=== PATIENT | male | born 1965 | race African-American/Black ===

== ENCOUNTER 2016-11-21 14:43 | Emergency (ER) | payer MEDICARE, OTHER ==
[2016-11-21 14:49] VITALS: BP 157/93
--- NOTE | 2016-11-21 15:02 | ER Document Report ---
ED Hand/Wrist Injury - General Chief Complaint: Hand Swelling Stated Complaint: LEFT HAND SWELLING Time seen by provider: 15:02 Mode of Arrival: Ambulatory Information source: Patient Notes: 51-year-old man presents to ED for left thumb swelling and painful since yesterday. He states he does not remember any injury. TRAVEL OUTSIDE OF THE [place] IN LAST 30 DAYS: No - HPI Injury to: Thumb Onset: Yesterday Where: Home Timing: Still present Quality of pain: Pressure, Stabbing Severity: Moderate Pain Level: 4 - Related Data Allergies/Adverse Reactions: No Known Allergies Allergy (Verified 11/21/16 14:47) Past Medical History - General Information source: Patient - Social History Smoking Status: Never Smoker Cigarette use (# per day): No Chew tobacco use (# tins/day): No Smoking Education Provided: No Frequency of alcohol use: Occasional Drug Abuse: None Occupation: disabled Lives with: Family Family History: CAD, DM, Hyperlipidemia, Hypertension Patient has suicidal ideation: No Patient has homicidal ideation: No - Past Medical History Cardiac Medical History: Reports: Hx Congestive Heart Failure, Hx Coronary Artery Disease, Hx Hypercholesterolemia, Hx Hypertension Pulmonary Medical History: Reports: Hx Bronchitis, Hx Pneumonia EENT Medical History: Reports: None Neurological Medical History: Reports: None Endocrine Medical History: Reports: Hx Diabetes Mellitus Type 2 Renal/ Medical History: Reports: Hx End Stage Renal Disease, Other - Hemodialysis Malignancy Medical History: Reports None GI Medical History: Reports: None Musculoskeltal Medical History: Reports None Skin Medical History: Reports None Psychiatric Medical History: Reports: None Traumatic Medical History: Reports: None Infectious Medical History: Reports: None Past Surgical History: Reports: Other - Left radiocephalic fistula insertion. Angioplasty in left radiocephalic - Immunizations Immunizations up to date: Yes Hx Diphtheria, Pertussis, Tetanus Vaccination: Yes Review of Systems - Review of Systems Constitutional: No symptoms reported EENT: No symptoms reported Cardiovascular: No symptoms reported Respiratory: No symptoms reported Gastrointestinal: No symptoms reported Genitourinary: No symptoms reported Male Genitourinary: No symptoms reported Musculoskeletal: Other - Swollen painful left thumb Skin: Other - Swollen painful left thumb Hematologic/Lymphatic: No symptoms reported Neurological/Psychological: No symptoms reported Physical Exam - Vital signs Vitals: Temp Pulse Resp BP Pulse Ox 98.8 F 99 20 157/93 H 96 11/21/16 14:46 11/21/16 14:46 11/21/16 14:46 11/21/16 14:46 11/21/16 14:46 Interpretation: Normal - General General appearance: Appears well, Alert - HEENT Head: Normocephalic, Atraumatic Eyes: Normal Pupils: PERRL - Respiratory Respiratory status: No respiratory distress Chest status: Nontender Breath sounds: Normal Chest palpation: Normal - Cardiovascular Rhythm: Regular Heart sounds: Normal auscultation Murmur: No - Abdominal Inspection: Normal Distension: No distension Bowel sounds: Normal Tenderness: Nontender Organomegaly: No organomegaly - Back Back: Normal, Nontender - Extremities General lower extremity: Normal inspection, Nontender, Normal color, Normal ROM , Normal temperature, Normal weight bearing. No: Richelle's sign Hand: Other - Left thumb swollen red tender - Neurological Neuro grossly intact: Yes Cognition: Normal Orientation: AAOx4 [place] Coma Scale Eye Opening: Spontaneous [place] Coma Scale Verbal: Oriented [place] Coma Scale Motor: Obeys Commands [place] Coma Scale Total: 15 Speech: Normal Motor strength normal: LUE, RUE, LLE, RLE Sensory: Normal - Psychological Associated symptoms: Normal affect, Normal mood - Skin Skin Temperature: Warm Skin Moisture: Dry Skin Color: Normal Course - Vital Signs Vital signs: Temp Pulse Resp BP Pulse Ox 98.8 F 99 20 157/93 H 96 11/21/16 14:50 11/21/16 14:50 11/21/16 14:50 11/21/16 14:50 11/21/16 14:50 Discharge - Discharge Clinical Impression: gout left thumb Gout Qualifiers: Gout site: hand Gout etiology: due to renal impairment Laterality: left Chronicity: acute Qualified Code(s): M10.342 - Gout due to renal impairment, left hand Condition: Stable Disposition: HOME, SELF-CARE Additional Instructions: Gout You have been diagnosed as having gout. Gout is a problem caused by an excess of uric acid, a natural chemical found in the body. The cause of this disease is unknown. Gout arthritis occurs when crystals of uric acid form in the joints. The big toe is the most common joint involved, but any joint can become affected. Persons with gout may also form uric acid kidney stones, resulting in flank pain and blood in the urine. Nodules of uric acid may form under the skin. The first step of treatment is to decrease the inflammation in the joint with antiinflammatory medication. Medication to lower the uric acid level in the blood may then be prescribed. This medication should be taken regularly, as any sudden change in dosage may provoke an attack of gout. Some foods, such as red meat, can provoke an attack in some gout sufferers. Call the doctor if new symptoms arise, or if you do not improve. Gout Diet Changing your diet can decrease the uric acid in your blood. High levels of uric acid cause gouty arthritis and uric acid kidney stones. If you have gout , you should avoid meats that are high in purine. Meat products to avoid include liver, kidneys, and brains. In general, poultry is better than red meats. Seafoods to avoid include anchovies, sardines, osman, mackerel, and scallops. In addition to limiting purine-rich foods, people with gout should limit protein intake to 10-15% of total calories. Carbohydrate intake should be around 50% of total daily calories. Limit fat intake to 30% of total daily calories. Cholesterol intake should be less than 300 mg/day. Maintain or achieve a healthy body weight. Weight loss should be gradual. Rapid weight loss can actually increase uric acid levels temporarily. Alcohol, especially beer, should be avoided. Get plenty of fluids. This dilutes urinary uric acid, and helps prevent uric acid kidney stones. Drink eight to twelve cups of water daily. Oral Narcotic Medication You have been given a prescription for pain control. This medication is a narcotic. It's best taken with food, as nausea can result if taken on an empty stomach. Don't operate machinery or drive within six hours of taking this medication. Do not combine this medicine with alcohol, or with any medication which can cause sedation (such as cold tablets or sleeping pills) unless you get permission from the physician. Narcotics tend to cause constipation. If possible, drink plenty of fluids and eat a diet high in fiber and fruits. FOLLOW-UP CARE: Please call your doctor on Wednesday and schedule a follow-up visit within the next 2-3 days. If you have been referred to a physician for follow-up care, call the physician s office for an appointment as you were instructed or within the next two days. If you experience worsening or a significant change in your symptoms, notify the physician immediately or return to the Emergency Department at any time for re-evaluation. Prescriptions: Oxycodone HCl/Acetaminophen [Percocet 5-325 mg Tablet] 1 tab PO Q6HP PRN #20 tablet PRN Reason: Forms: Elevated Blood Pressure Referrals: DAWN JOHNSON MD [Primary Care Provider] - 11/23/16
== END 2016-11-21 16:53 | disposition home or self-care (01) ==
LOC: ER 14:43
DX: I12.0 Hypertensive chronic kidney disease with stage 5 chronic kidney disease or end stage renal disease (principal); E11.22 Type 2 diabetes mellitus with diabetic chronic kidney disease; M10.342 Gout due to renal impairment, left hand; N18.6 End stage renal disease; Z99.2 Dependence on renal dialysis; I25.10 Atherosclerotic heart disease of native coronary artery without angina pectoris
CPT/HCPCS: 99283

== ENCOUNTER → 2017-03-09 | Outpatient (CLI) | payer MEDICARE, OTHER ==
[~2017-03-09] MED LIST: REGADENOSON INJ 0.4 MG/5 ML DISP.SYRIN IV ONE
--- NOTE | 2017-03-10 16:12 | RADIOLOGY REPORT ---
STRESS TEST REPORT PATIENT NAME: ALBERT SHAFFER ROOM#: DATE OF SERVICE: 03/09/2017 AGE: 51Y ORDER#: [id number] REFERRING MD: Nael NORIEGA M.D. INDICATION: Preop transplant workup for kidney transplant. PROCEDURE PERFORMED REST/STRESS SINGLE ISOTOPE CARDIOLITE SPECT IMAGING WITH IV LEXISCAN STRESS AND GATED SPECT IMAGING CLINICAL HISTORY This is a 51-year-old male with no known coronary artery disease but has cardiac risk factors of hypertension, CKD, ESRD on dialysis, and family history of [place]. Current symptomatology includes no chest pains. PROCEDURE The patient received IV Lexiscan 0.4 mg infused over ten seconds. The resting heart rate was 88 bpm and increased to 124 bpm at end infusion. The resting BP was 129/78 and increased to 149/62 at end infusion. Patient had symptoms of flushing and dizziness, but no chest pains. The resting 12 lead EKG showed normal sinus rhythm at 90 bpm, with nonspecific ST changes in the anterior leads seen. At end infusion, further nonspecific ST changes were seen in the inferolateral leads. Myocardial perfusion imaging was performed at rest 60 minutes following the injection of 15.24 mCi Cardiolite. Ten seconds after the IV Lexiscan injection, patient was injected with 47.1 mCi of Cardiolite and flushed. Gated post-stress tomographic imaging was performed 60 minutes after stress. FINDINGS The overall quality of the study is fair. The left ventricular cavity is noted to be enlarged on both the rest and stress studies. There is no abnormal transient ischemic dilatation of the left ventricle. The TID ratio was 1.10. SPECT images showed a small area of moderate reversible ischemia in the basal inferior wall and basal inferoseptal wall, with no fixed perfusion defect. Gated SPECT imaging showed reduced motion and contraction in the basal inferior wall and basal inferoseptal wall. The left ventricular ejection fraction was calculated to be 51%, which is lower limits of normal. IMPRESSION: MYOCARDIAL PERFUSION IMAGING IS ABNORMAL. THERE IS A SMALL AREA OF MODERATE REVERSIBLE ISCHEMIA IN THE BASAL INFERIOR WALL AND BASAL INFEROSEPTAL WALL, WITH REDUCED MOTION AND CONTRACTION IN BOTH AREAS. THE OVERALL LEFT VENTRICULAR EJECTION FRACTION IS LOW NORMAL WITH REGIONAL WALL MOTION ABNORMALITIES SEEN IN BOTH AREAS. ON PRIOR STUDY FOR COMPARISON. INTERPRETING PHYSICIAN: DAMEON CEJA M.D. /: SG TT: 1600 ID: [id number] /: [id number] TD: [id number] JOB: [id number] cc:Jessica LOCKWOOD M.D. > [facility]
== END ==
LOC: RAD 06:25
PROVIDERS: ATTEND Internal Medicine Nephrology
DX: Z01.810 Encounter for preprocedural cardiovascular examination (principal); I12.0 Hypertensive chronic kidney disease with stage 5 chronic kidney disease or end stage renal disease; N18.6 End stage renal disease
CPT/HCPCS: 93017; 78452; A9500; J2785; Q9969

== ENCOUNTER 2017-09-23 08:56 | Day surgery (SDC) | payer MEDICARE, OTHER ==
[~2017-09-23 08:56] MED LIST changes: +DIAZEPAM 5 MG TABLET PO PRN; +OXYCODONE-ACETAMINOPHEN 5-325 MG TABLET PO PRN; -REGADENOSON INJ 0.4 MG/5 ML DISP.SYRIN IV ONE
[2017-09-23 09:32] LABS: HEMATOCRIT 35.6 % (37.9-51.0); HEMOGLOBIN 11.8 g/dL (13.5-17.0); MEAN CORPUSCULAR HEMOGLOBIN 28.6 pg (27.0-33.4); MEAN CORPUSCULAR HGB CONC 33.1 g/dL (32.0-36.0); MEAN CORPUSCULAR VOLUME 86 fl (80-97); PLATELET COUNT 256 10^3/uL (150-450); RED BLOOD COUNT 4.12 10^6/uL (4.35-5.55); RED CELL DISTRIBUTION WIDTH 15.4 % (11.5-14.0); WHITE BLOOD COUNT 6.1 10^3/uL (4.0-10.5)
[2017-09-23] MEDS ORDERED: LIDOCAINE 0.5% INJ-PF (5 MG/ML) 50 ML SDV ONE (09:47)
[2017-09-23 09:48] LABS: ANION GAP 15 (5-19); BLOOD UREA NITROGEN 48 mg/dL (7-20); CALCIUM 10.1 mg/dL (8.4-10.2); CARBON DIOXIDE 28 mmol/L (22-30); CHLORIDE 102 mmol/L (98-107); GLUCOSE 93 mg/dL (75-110); POTASSIUM 4.9 mmol/L (3.6-5.0); SODIUM 144.5 mmol/L (137-145)
[2017-09-23] MEDS ORDERED: FENTANYL CITRATE INJ/PF 100 MCG/2 ML AMPUL ONE (10:27)
[2017-09-23] MEDS ORDERED: MIDAZOLAM 2 MG/2 ML INJ ONE (10:27)
[2017-09-23] MEDS ORDERED: HEPARIN SOD (PORCINE) 5,000 UNIT/ML 1 ML SYRINGE ONE (10:28)
--- NOTE | 2017-09-23 11:49 | PDOC H&P ---
General Chief Complaint: This patient was admitted for angiogram and the left forearm AV fistula due to malfunction. - Current Medications/Allergies Home Medications: Aspirin [Aspirin EC] 81 mg PO DAILY 08/06/15 Calcium Acetate 2 tab PO TID 08/06/15 Carvedilol [Coreg] 1 tab PO Q12 08/06/15 Cinacalcet HCl [Sensipar 90 mg Tablet] 1 tab PO DAILY 08/06/15 Furosemide 80 mg PO BID 08/06/15 Hydralazine HCl 25 mg PO Q8H 08/06/15 Lisinopril 20 mg PO DAILY 08/06/15 Nifedical Xl 1 tab PO DAILY 08/06/15 Sevelamer Carbonate [Renvela] 800 mg PO TID 08/06/15 Cholecalciferol (Vitamin D3) [Vitamin D3] 50,000 unit PO ASDIR PRN 02/18/16 Vit B Comp No.3/Folic/C/Biotin [Vol-Care Rx Tablet] 1 tab PO DAILY 02/18/16 Allergies/Adverse Reactions: No Known Allergies Allergy (Verified 09/23/17 09:32) Past Medical History Cardiac Medical History: Reports: Congestive Heart Failure, Coronary Artery Disease, Hyperlipidema, Hypertension Denies: Myocardial Infarction Pulmonary Medical History: Reports: Bronchitis, Pneumonia Denies: Asthma, Chronic Obstructive Pulmonary Disease (COPD) Neurological Medical History: Denies: Seizures Endocrine Medical History: Reports: Diabetes Mellitus Type 1, Diabetes Mellitus Type 2 Renal/ Medical History: Reports: End Stage Renal Disease Musculoskeltal Medical History: Reports: Arthritis Hematology: Denies: Anemia Past Surgical History Past Surgical History: Reports: Other - Left radiocephalic fistula insertion. Angioplasty in left radiocephalic Family History Family History: CAD, DM, Hyperlipidemia, Hypertension Parental Family History Reviewed: No Children Family History Reviewed: No Sibling(s) Family History Reviewed.: No Social History Smoking Status: Never Smoker Physical Exam Vital Signs: Temp Pulse Resp BP Pulse Ox 98.6 F 84 18 157/96 H 99 09/23/17 09:10 09/23/17 09:10 09/23/17 09:10 09/23/17 09:10 09/23/17 09:10 Intake & Output 09/22/17 09/23/17 09/24/17 06:59 06:59 06:59 Weight 124.738 kg 124.738 kg Additional comments: Constitutional: Well-developed well-nourished -[place] gentleman, increased body mass index. No apparent acute distress. Eyes: Mucous membranes pink and moist, pupils equal and reactive to light. Conjunctiva normal. Cornea normal. ENT: Hearing grossly normal. External pinna normal to inspection. Teeth intact. Tongue normal to inspection. Cardiac: Heart sounds 1 and 2 normal.. Respiratory breath sounds are present bilaterally, normal. Normal respiratory effort. Psychiatric: Judgment, memory, insight seem normal. Mood is pleasant and appropriate. Extremities: Upper extremities show normal range of movement. Pulses present noted to the radial arteries. Capillary refill normal. No cyanosis noted. No muscle wasting noted. Left forearm radiocephalic fistula noted. Somewhat firm proximally suggesting cephalad stenosis. Impression/Plan Plan: The patient is admitted for fistulogram and possible angioplasty. The risks, benefits, expected alternatives are familiar to him.
--- NOTE | 2017-09-23 11:53 | PDOC DISCHARGE SUMMARY ---
Discharge Summary (SDC) - Discharge Final Diagnosis: #1 malfunctioning AV fistula, left forearm. 2. End-stage renal disease on hemodialysis. 3. Diabetes mellitus type 2. 4. Hypertension. Date of Surgery: 09/23/17 Discharge Date: 09/23/17 Condition: Fair Treatment or Instructions: Discharge home [after recovery per ASU criteria]. Diet , [renal],as tolerated, when fully awake advance as tolerated. Activities within moderation encouraged. Follow up in my office by appointment in about [1 week]. Call for appointment. Leave wounds [covered], [keep clean and dry, until hemodialysis]. Meds per med rec. Hold of on school/work [until evaluation in office]. May shower [in 48 hrs], [try to keep operated area as dry as possible]. Referrals: DAWN JOHNSON MD [Primary Care Provider] - Discharge Diet: Other (Comments) Respiratory Treatments at Home: Deep Breathing/Coughing Discharge Activity: Activity As Tolerated
--- NOTE | 2017-09-23 11:57 | Operative Report ---
Operative Report DATE OF SURGERY: 09/23/17 PREOPERATIVE DIAGNOSIS: #1 malfunctioning AV fistula, left forearm. 2. End- stage renal disease on hemodialysis. 3. Diabetes mellitus type 2. 4. Hypertension. POSTOPERATIVE DIAGNOSIS: #1 malfunctioning AV fistula, left forearm. 2. End- stage renal disease on hemodialysis. 3. Diabetes mellitus type 2. 4. Hypertension. OPERATION: 1. Needle access into fistula. 2. Angiogram and interpretation. SURGEON: JOEL BALDERRAMA JUMPBASTING LINING BASTER: None ANESTHESIA: Moderate Sedation TISSUE REMOVED OR ALTERED: Not applicable. COMPLICATIONS: None. ESTIMATED BLOOD LOSS: 2 mL. INTRAOPERATIVE FINDINGS: Of a well founded left radiocephalic fistula. Angiogram demonstrated smooth outflow through several branches. The proximal fistula is robust larger than the radial artery. The anastomosis looked great. There may be an opportunity for ligation of branch vessels in order to improve flow through the fistula and, at 7 cm possible angioplasty in a retrograde fashion. Prior to the above fistula ultrasound will be needed in order to define the physiologic impact. PROCEDURE: PROCEDURE: After verifying the procedure and having obtained informed consent, the patient's left arm was prepared with Chlorhexidine and draped out with sterile linen. Local anesthesia infiltrated. Percutaneous access into the fistula , is intact, obtained about [2 cm] from the arteriovenous anastomosis using a micro puncture needle followed by micro puncture wire and then a micro puncture catheter. Angiogram demonstrated the aforementioned findings. Both retrograde and antegrade. The instrumentation was now withdrawn over pressure for 10 minutes.. Dressings applied, procedure concluded. Exposure time: 0.1 minutes Radiation: 3.99 Deja byrd. Contrast: 10 mils of Isovue-300, low osmolality. DICTATING PHYSICIAN: JOEL VIDALES M.D. cc: JOEL VIDALES M.D. ([id number]) >>
[2017-09-23 13:27] VITALS: BP 130/60
--- NOTE | 2017-10-11 16:24 | RADIOLOGY REPORT (SQ) ---
EXAM DESCRIPTION: FISTULAGRAM COMPLETED DATE/TIME: 10/11/2017 12:22 pm REASON FOR STUDY: T82.858A T82.858A STENOSIS OF OTHER VASCULAR PROSTH DEV/GRFT, INIT Y83.2 ANASTOM OS,BYPASS OR GRFT CAUSE ABN REACT/COMPL, W/O MT I13.2 HYP HRT CHR KDNY DIS W HRT FAIL AND W STG 5 CHR KDNY COMPARISON: 07/07/2016 FLUOROSCOPY TIME: 0.1 minutes 10 series of digital images saved to PACS. TECHNIQUE: Intra-operative images acquired during surgical procedure to evaluate progress. NUMBER OF IMAGES: 10 series of digital angiographic imaging left upper extremity LIMITATIONS: None. FINDINGS: Intra procedural imaging and fluoro for left upper extremity dialysis access evaluation. IMPRESSION: INTRA PROCEDURAL IMAGING ABOVE . COMMENT: Quality ID [id number]: Final reports for procedures using fluoroscopy that document radiation exp osure indices, or exposure time and number of fluorographic images (if radiation exposure indices are not available) Please consult full operative report of the attending physician for description of the procedure. TECHNICAL DOCUMENTATION: JOB ID: [id number] [employer]- All Rights Reserved
== END 2017-09-23 13:15 | disposition home or self-care (01) ==
LOC: CCL 08:56
PROVIDERS: ATTEND Surgery
PROC: 057F3DZ Dilation of Left Cephalic Vein with Intraluminal Device, Percutaneous Approach (ICD-10-PCS; principal; 2017-09-23)
DX: T82.858A Stenosis of other vascular prosthetic devices, implants and grafts, initial encounter (principal); Y83.2 Surgical operation with anastomosis, bypass or graft as the cause of abnormal reaction of the patient, or of later complication, without mention of misadventure at the time of the procedure; I13.2 Hypertensive heart and chronic kidney disease with heart failure and with stage 5 chronic kidney disease, or end stage renal disease; N18.6 End stage renal disease; I50.9 Heart failure, unspecified; E10.22 Type 1 diabetes mellitus with diabetic chronic kidney disease; Z99.2 Dependence on renal dialysis; I25.10 Atherosclerotic heart disease of native coronary artery without angina pectoris; E78.5 Hyperlipidemia, unspecified; M19.90 Unspecified osteoarthritis, unspecified site; Z79.82 Long term (current) use of aspirin; Z79.899 Other long term (current) drug therapy
CPT/HCPCS: 36415; 85027; 80048; 36901; C1752; Q9967; J2250; J1644 ×2; A9270 ×2; J3010; J3490

== ENCOUNTER 2018-04-19 09:50 | Day surgery (SDC) | payer MEDICARE, OTHER ==
[2018-04-19] MEDS ORDERED: LIDOCAINE 0.5% INJ-PF (5 MG/ML) 50 ML SDV ONE (10:00)
[2018-04-19 10:09] LABS: HEMOGLOBIN 11.7 g/dL (13.5-17.0); MEAN CORPUSCULAR HEMOGLOBIN 28.3 pg (27.0-33.4); MEAN CORPUSCULAR HGB CONC 32.5 g/dL (32.0-36.0); MEAN CORPUSCULAR VOLUME 87 fl (80-97); PLATELET COUNT 300 10^3/uL (150-450); RED BLOOD COUNT 4.13 10^6/uL (4.35-5.55); RED CELL DISTRIBUTION WIDTH 16.5 % (11.5-14.0); WHITE BLOOD COUNT 5.2 10^3/uL (4.0-10.5)
[2018-04-19] MEDS ORDERED: MIDAZOLAM 2 MG/2 ML INJ ONE (10:13)
[2018-04-19] MEDS ORDERED: HEPARIN SOD (PORCINE) 5,000 UNIT/ML 1 ML SYRINGE ONE (10:14)
[2018-04-19] MEDS ORDERED: FENTANYL CITRATE INJ/PF 100 MCG/2 ML AMPUL ONE (10:14)
[2018-04-19] MEDS ORDERED: OXYCODONE-ACETAMINOPHEN 5-325 MG TABLET ONE (10:28)
[2018-04-19] MEDS ORDERED: DIAZEPAM 5 MG TABLET ONE (10:29)
[2018-04-19 10:33] LABS: ANION GAP 16 (5-19); BLOOD UREA NITROGEN 42 mg/dL (7-20); CALCIUM 8.7 mg/dL (8.4-10.2); CARBON DIOXIDE 27 mmol/L (22-30); CHLORIDE 101 mmol/L (98-107); GLUCOSE 93 mg/dL (75-110); POTASSIUM 4.5 mmol/L (3.6-5.0); SODIUM 143.8 mmol/L (137-145)
--- NOTE | 2018-04-19 11:30 | PDOC H&P ---
General Chief Complaint: The patient is referred across for evaluation of his arteriovenous fistula which is been malfunctioning. - Current Medications/Allergies Home Medications: Aspirin [Aspirin EC] 81 mg PO DAILY 08/06/15 Calcium Acetate 2 tab PO TID 08/06/15 Carvedilol [Coreg] 1 tab PO Q12 08/06/15 Cinacalcet HCl [Sensipar 90 mg Tablet] 1 tab PO DAILY 08/06/15 Furosemide 80 mg PO BID 08/06/15 Hydralazine HCl 25 mg PO Q8H 08/06/15 Lisinopril 20 mg PO DAILY 08/06/15 Nifedical Xl 90 mg PO QHS 08/06/15 Sevelamer Carbonate [Renvela] 800 mg PO TID 08/06/15 Calcitriol 1 tab PO DAILY 04/18/18 Allergies/Adverse Reactions: No Known Allergies Allergy (Verified 09/23/17 09:32) Past Medical History Cardiac Medical History: Reports: Congestive Heart Failure, Hyperlipidema, Hypertension Denies: Coronary Artery Disease, Myocardial Infarction Pulmonary Medical History: Denies: Asthma, Bronchitis, Chronic Obstructive Pulmonary Disease (COPD), Pneumonia Neurological Medical History: Denies: Seizures Endocrine Medical History: Reports: Diabetes Mellitus Type 1, Diabetes Mellitus Type 2 Renal/ Medical History: Reports: End Stage Renal Disease Musculoskeltal Medical History: Reports: Arthritis - LEFT HAND Hematology: Denies: Anemia Past Surgical History Past Surgical History: Reports: Other - Left radiocephalic fistula insertion. Angioplasty in left radiocephalic Family History Family History: CAD, DM, Hyperlipidemia, Hypertension Parental Family History Reviewed: No Children Family History Reviewed: No Sibling(s) Family History Reviewed.: No Social History Smoking Status: Never Smoker Physical Exam Vital Signs: Temp Pulse Resp BP Pulse Ox 98.6 F 83 16 125/68 96 04/19/18 10:00 04/19/18 10:00 04/19/18 10:00 04/19/18 10:00 04/19/18 10:00 Intake & Output 04/18/18 04/19/18 04/20/18 06:59 06:59 06:59 Weight 129.5 kg Additional comments: Constitutional: Well-developed well-nourished -[place]wegian gentleman, increased body mass habitus. No apparent acute distress. Eyes: Mucous membranes pink and moist, pupils equal and reactive to light. Conjunctiva normal. Cornea normal. ENT: Hearing grossly normal. External pinna normal to inspection. Teeth intact. Tongue normal to inspection. Cardiac: Heart sounds 1 and 2 normal. Respiratory breath sounds are present bilaterally, normal. Normal respiratory effort. Psychiatric: Judgment, memory, insight seem normal. Mood is pleasant and appropriate. Extremities: Upper extremities show normal range of movement. Pulses present noted to the radial arteries. Capillary refill normal. No cyanosis noted. No muscle wasting noted. Left arm radiocephalic fistula somewhat softer than expected. Impression/Plan Plan: Angiogram and possible angioplasty suggested. The objective is prolong useful use of this fistula. The risks, benefits, expected outcome and alternatives are familiar to the patient.
--- NOTE | 2018-04-19 11:31 | Discharge Summary ---
Discharge Summary (SDC) - Discharge Final Diagnosis: #1 malfunctioning AV fistula, left radiocephalic. 2. End-stage renal disease on hemodialysis. 3. Diabetes mellitus type 2. 4. Hypertension. Treatment or Instructions: Discharge home [after recovery per ASU criteria]. Diet , [renal],as tolerated, when fully awake advance as tolerated. Activities within moderation encouraged. Follow up in my office by appointment in about [1 week]. Call for appointment. Leave wounds [covered], [keep clean and dry, until hemodialysis]. Hold of on school/work [until evaluation in office]. Meds per med rec. May shower [in 48 hrs], [try to keep operated area as dry as possible]. Referrals: DAWN JOHNSON MD [Primary Care Provider] - Discharge Diet: Other (Comments) - Renal. Respiratory Treatments at Home: Deep Breathing/Coughing Discharge Activity: Activity As Tolerated Report the Following to Your Physician Immediately: Shortness of Breath, Unusual Bleeding
--- NOTE | 2018-04-19 11:37 | Operative Report ---
Operative Report PREOPERATIVE DIAGNOSIS: #1 malfunctioning AV fistula, left radiocephalic. 2. End-stage renal disease on hemodialysis. 3. Diabetes mellitus type 2. 4. Hypertension. POSTOPERATIVE DIAGNOSIS: #1 malfunctioning AV fistula, left radiocephalic. 2. End-stage renal disease on hemodialysis. 3. Diabetes mellitus type 2. 4. Hypertension. OPERATION: 1. Needle introduction into the fistula. 2. Fistula angioplasty. 3. Angiogram and interpretation. #4 ultrasound evaluation of ultrasound- guided access into the fistula. Real-time. 1ST TOP IRONER: JOEL VIDALES 2ND Medical Parasitologist: None. ANESTHESIA: Moderate Sedation TISSUE REMOVED OR ALTERED: Not applicable. COMPLICATIONS: None. ESTIMATED BLOOD LOSS: 5 mL. INTRAOPERATIVE FINDINGS: Of a well founded left forearm radiocephalic fistula. Somewhat softer than expected. Predicted inflow reduction noted in the first 6 cm of the fistula, which is small. This was corrected with angioplasty up to 6 mm with improvement in palpation findings. There is a large lateral draining branch which may usefully be ligated if this is not sufficient. It may be necessary to dilate the proximal portion of the fistula up to 7 mm PROCEDURE: PROCEDURE: After verifying the procedure and having obtained informed consent, the patient's left arm and forearm were prepared with Chlorhexidine and draped out with sterile linen. Local anesthesia infiltrated. Percutaneous access into the fistula ,[retrograde], obtained about [20 cm] from the arteriovenous anastomosis using a micro puncture needle followed by micro puncture wire and then a micro puncture catheter. This was done on ultrasound guidance using real-time access into the vein. Ultrasound was also used to size the vein. Angiogram demonstrated the aforementioned findings. Angioplasty was elected. A 0.035 [place] wire was inserted, and over this, a 6 [place] short introducer was placed, this was followed by a 6 mm angioplasty balloon . Angioplasty was now done over the anastomotic and perianastomotic segment. This was done very carefully and using hand injection and a 3 mils syringe for 2 minutes. Angiogram demonstrated successful outcome. Completion angiogram demonstrated [satisfactory result]. The instrumentation was now withdrawn over hand pressure For 10 minutes. Dressings applied, procedure concluded. Exposure time: 0.7 minutes Radiation: 3.46 mCi Contrast: 25 mL of Isovue-M 300 low osmolality. DICTATING PHYSICIAN: JOEL VIDALES M.D. cc: JOEL VIDALES M.D. ([id number]) >>
[2018-04-19 12:31] VITALS: BP 151/86
--- NOTE | 2018-04-19 13:06 | RADIOLOGY REPORT (SQ) ---
EXAM DESCRIPTION: FISTULAGRAM W/PLASTY COMPLETED DATE/TIME: 04/19/2018 11:26 am REASON FOR STUDY: T82.858A T82.858A STENOSIS OF OTHER VASCULAR PROSTH DEV/GRFT, INIT COMPARISON: 09/23/2017 FLUOROSCOPY TIME: 0.7 minutes 65 digital images saved to PACS. TECHNIQUE: Intra-operative images acquired during surgical procedure to evaluate progress. NUMBER OF IMAGES: 65 digital images LIMITATIONS: None. FINDINGS: Intra procedural imaging and fluoro during left upper extremity dialysis graft evaluation and plasty by Dr. Garrett. Please see the operative report for further details IMPRESSION: Intra procedural imaging and fluoro COMMENT: Quality ID [id number]: Final reports for procedures using fluoroscopy that document radiation exp osure indices, or exposure time and number of fluorographic images (if radiation exposure indices are not available) Please consult full operative report of the attending physician for description of the procedure. TECHNICAL DOCUMENTATION: JOB ID: [id number] [employer]- All Rights Reserved Reading location - IP/workstation name: [email or web address]
== END 2018-04-19 12:40 | disposition home or self-care (01) ==
LOC: CCL 09:50
PROVIDERS: ATTEND Surgery
DX: T82.858A Stenosis of other vascular prosthetic devices, implants and grafts, initial encounter (principal); Y83.2 Surgical operation with anastomosis, bypass or graft as the cause of abnormal reaction of the patient, or of later complication, without mention of misadventure at the time of the procedure; I13.2 Hypertensive heart and chronic kidney disease with heart failure and with stage 5 chronic kidney disease, or end stage renal disease; I50.9 Heart failure, unspecified; N18.6 End stage renal disease; E10.22 Type 1 diabetes mellitus with diabetic chronic kidney disease; Z99.2 Dependence on renal dialysis; M19.042 Primary osteoarthritis, left hand; Z79.82 Long term (current) use of aspirin; Z79.899 Other long term (current) drug therapy
CPT/HCPCS: 36415; 85027; 80048; 36902; 76937; C1725; C1752; C1887; C1769; J2250; J1644 ×2; A9270 ×2; J3010; J3490

== ENCOUNTER 2018-11-06 12:48 | Inpatient (IN) | payer MEDICARE, OTHER ==
--- NOTE | 2018-11-06 13:19 | ER Document Report ---
ED Medical Screen (RME) - General Chief Complaint: Shortness Of Breath Stated Complaint: SHORTNESS OF BREATH Time Seen by Provider: 11/06/18 13:16 Primary Care Provider: DAWN JOHNSON MD [Primary Care Provider] - Follow up as needed Notes: Patient is here saying he is having "trouble breathing" since last night. Says it feels like when he has had CHF in the past. Also like when he had pneumonia about 10 years ago. Has had a frequent dry cough, not producing any phlegm. Denies fever. Denies vomiting or diarrhea. Denies chest pains. No abdominal pains. Patient is a dialysis patient, Wednesday, Wednesday, and Wednesday. Did go to his dialysis Wednesday. Hx NIDDM, hypertension, CHF. Primary care physician is Dr. Johnson TRAVEL OUTSIDE OF THE [place] IN LAST 30 DAYS: No - Related Data Allergies/Adverse Reactions: No Known Allergies Allergy (Verified 11/06/18 12:51) Past Medical History - Past Medical History Cardiac Medical History: Reports: Hx Congestive Heart Failure, Hx Hypercholesterolemia, Hx Hypertension Denies: Hx Coronary Artery Disease, Hx Heart Attack Pulmonary Medical History: Denies: Hx Asthma, Hx Bronchitis, Hx COPD, Hx Pneumonia Neurological Medical History: Denies: Hx Cerebrovascular Accident, Hx Seizures Endocrine Medical History: Reports: Hx Diabetes Mellitus Type 1, Hx Diabetes Mellitus Type 2 Renal/ Medical History: Reports: Hx End Stage Renal Disease. Denies: Hx Peritoneal Dialysis - HEMO DIALYSIS-MWF Musculoskeltal Medical History: Reports Hx Arthritis - LEFT HAND Past Surgical History: Reports: Other - Left radiocephalic fistula insertion. Angioplasty in left radiocephalic - Immunizations Immunizations up to date: Yes Hx Diphtheria, Pertussis, Tetanus Vaccination: No - UNK History of Influenza Vaccine for 05/2017 - 10/2017 Season: Yes Physical Exam - Vital signs Vitals: Temp Pulse Resp BP Pulse Ox 99 F 90 18 178/93 H 96 11/06/18 12:57 11/06/18 12:57 11/06/18 12:57 11/06/18 12:57 11/06/18 12:57 Course - Vital Signs Vital signs: Temp Pulse Resp BP Pulse Ox 99 F 90 18 178/93 H 96 11/06/18 12:57 11/06/18 12:57 11/06/18 12:57 11/06/18 12:57 11/06/18 12:57 Doctor's Discharge - Discharge Referrals: DAWN JOHNSON MD [Primary Care Provider] - Follow up as needed
[2018-11-06 14:14] LABS: ABSOLUTE EOSINOPHILS # (AUTO) 0.1 10^3/uL (0.0-0.6); ABSOLUTE LYMPHOCYTES (AUTO) 1.1 10^3/uL (0.5-4.7); ABSOLUTE MONOCYTES (AUTO) 0.4 10^3/uL (0.1-1.4); BASOPHILS % (AUTO) 0.4 % (0-2); EOSINOPHILS % (AUTO) 1.7 % (0-6); HEMATOCRIT 31.7 % (37.9-51.0); HEMOGLOBIN 10.5 g/dL (13.5-17.0); LYMPHOCYTES % (AUTO) 16.1 % (13-45); MEAN CORPUSCULAR HEMOGLOBIN 28.4 pg (27.0-33.4); MEAN CORPUSCULAR HGB CONC 33.1 g/dL (32.0-36.0); MEAN CORPUSCULAR VOLUME 86 fl (80-97); MONOCYTES % (AUTO) 6.3 % (3-13); PLATELET COUNT 278 10^3/uL (150-450); RED CELL DISTRIBUTION WIDTH 16.6 % (11.5-14.0); SEGMENTED NEUTROPHILS % (AUTO) 75.5 % (42-78); TOTAL CELLS COUNTED % (AUTO) 100 %; WHITE BLOOD COUNT 6.6 10^3/uL (4.0-10.5)
--- NOTE | 2018-11-06 14:31 | RADIOLOGY REPORT (SQ) ---
EXAM DESCRIPTION: CHEST 2 VIEWS COMPLETED DATE/TIME: 11/06/2018 2:15 pm REASON FOR STUDY: Shortness of breath, history CHF, dialysis patient COMPARISON: None. EXAM PARAMETERS: NUMBER OF VIEWS: two views TECHNIQUE: Digital Frontal and Lateral radiographic views of the chest acquired. RADIATION DOSE: NA LIMITATIONS: none FINDINGS: LUNGS AND PLEURA: No opacities, masses or pneumothorax. No pleural effusion. MEDIASTINUM AND HILAR STRUCTURES: No masses or contour abnormalities. HEART AND VASCULAR STRUCTURES: Cardiac silhouette is mildly enlarged. Prominent interstitial marking s bilaterally. BONES: No acute findings. HARDWARE: None in the chest. OTHER: No other significant finding. IMPRESSION: Cardiomegaly with mild pulmonary vascular congestion. TECHNICAL DOCUMENTATION: JOB ID: [id number] [employer]- All Rights Reserved Reading location - IP/workstation name: [email or web address]
[2018-11-06 14:34] LABS: ALANINE AMINOTRANSFERASE 15 U/L (21-72); ALBUMIN 4.6 g/dL (3.5-5.0); ALKALINE PHOSPHATASE 227 U/L (38-126); ANION GAP 14 (5-19); ASPARTATE AMINO TRANSFERASE 23 U/L (17-59); BILIRUBIN,DIRECT 0.5 mg/dL (0.0-0.4); BILIRUBIN,TOTAL 0.7 mg/dL (0.2-1.3); BLOOD UREA NITROGEN 49 mg/dL (7-20); CALCIUM 9.4 mg/dL (8.4-10.2); CARBON DIOXIDE 28 mmol/L (22-30); CHLORIDE 100 mmol/L (98-107); GLUCOSE 82 mg/dL (75-110); POTASSIUM 4.9 mmol/L (3.6-5.0); SODIUM 141.7 mmol/L (137-145); TOTAL PROTEIN 8.1 g/dL (6.3-8.2)
[2018-11-06] MEDS ORDERED: IPRATROPIUM/ALBUTEROL 0.5-2.5 MG/3 ML AMPUL NEB ONE (14:37)
--- NOTE | 2018-11-06 14:42 | ER Document Report ---
ED General - General Chief Complaint: Shortness Of Breath Stated Complaint: SHORTNESS OF BREATH Time Seen by Provider: 11/06/18 13:16 Primary Care Provider: DAWN JOHNSON MD [Primary Care Provider] - Follow up as needed TRAVEL OUTSIDE OF THE [place] IN LAST 30 DAYS: No - HPI Notes: Patient is a 53-year-old male that presents to the emergency department for chief complaint of shortness of breath and cough. Patient states last night he started to feel short of breath. He states it feels like he is getting winded easily. He also has a dry nonproductive cough. He denies associated chest pain, fever, chills, nausea, vomiting and abdominal pain. Patient does have a history of CHF but does not know his EF. He is also on dialysis and has not had any missed treatments, his last treatment was on Wednesday. He states he feels like he is at his dry weight which is 124 kg. He r eports chronic swelling in his lower extremities left greater than right and states that that is unchanged today. He denies any orthopnea. Past Medical History: Diabetes, hypertension, hyperlipidemia, CKD on dialysis Past Surgical History: Left forearm dialysis fistula Social History: Denies drugs alcohol and tobacco Family History: Reviewed and noncontributory for presenting illness Allergies: Reviewed, see documented allergy list. REVIEW OF SYSTEMS: CONSTITUTIONAL : No fever No chills No diaphoresis No recent illness EENT: No vision changes congestion No sore throat CARDIOVASCULAR: No chest pain No palpitations RESPIRATORY: shortness of breath cough difficulty breathing GASTROINTESTINAL: No abdominal pain No nausea No vomiting No diarrhea GENITOURINARY: No dysuria No hematuria No difficulty urinating MUSCULOSKELETAL: No back pain No leg pain No arm pain SKIN: No rashes No lesions LYMPHATIC: No swollen, enlarged glands. NEUROLOGICAL: No lightheadedness No headache No weakness No paresthesias PSYCHIATRIC: No anxiety No depression PHYSICAL EXAMINATION: Vital signs reviewed, nursing noted reviewed. GENERAL: Well-appearing, well-nourished and in no acute distress. HEAD: Atraumatic, normocephalic. EYES: Eyes appear normal, extraocular movements intact, sclera anicteric, conjunctiva are normal. ENT: nares patent, oropharynx clear without exudates. Moist mucous membranes. NECK: Normal range of motion, supple without lymphadenopathy LUNGS: Breath sounds mildly diminished bilaterally with no wheezing, rhonchi or rales. No tachypnea or accessory muscle use HEART: Regular rate and rhythm without murmurs ABDOMEN: Soft, nontender, normoactive bowel sounds. No rebound, guarding, or rigidity. No masses appreciated. EXTREMITIES: Left forearm AV fistula with good bruit and thrill, no bleeding. Nontender, good range of motion, bilateral lower extremity pitting edema left greater than right NEUROLOGICAL: No focal neurological deficits. Moves all extremities spontaneously Motor and sensory grossly intact on exam. PSYCH: Normal mood, normal affect. SKIN: Warm, Dry, normal turgor, no rashes or lesions noted on exposed skin - Related Data Allergies/Adverse Reactions: No Known Allergies Allergy (Verified 11/06/18 12:51) Past Medical History - Social History Smoking Status: Never Smoker Family History: CAD, DM, Hyperlipidemia, Hypertension Patient has suicidal ideation: No Patient has homicidal ideation: No - Past Medical History Cardiac Medical History: Reports: Hx Congestive Heart Failure, Hx Hypercholesterolemia, Hx Hypertension Denies: Hx Coronary Artery Disease, Hx Heart Attack Pulmonary Medical History: Denies: Hx Asthma, Hx Bronchitis, Hx COPD, Hx Pneumonia Neurological Medical History: Denies: Hx Cerebrovascular Accident, Hx Seizures Endocrine Medical History: Reports: Hx Diabetes Mellitus Type 1, Hx Diabetes Mellitus Type 2 Renal/ Medical History: Reports: Hx End Stage Renal Disease. Denies: Hx Peritoneal Dialysis - HEMO DIALYSIS-MWF Musculoskeletal Medical History: Reports Hx Arthritis - LEFT HAND Past Surgical History: Reports: Other - Left radiocephalic fistula insertion. Angioplasty in left radiocephalic - Immunizations Immunizations up to date: Yes Hx Diphtheria, Pertussis, Tetanus Vaccination: No - UNK Physical Exam - Vital signs Vitals: Temp Pulse Resp BP Pulse Ox 99 F 90 18 178/93 H 96 11/06/18 12:57 11/06/18 12:57 11/06/18 12:57 11/06/18 12:57 11/06/18 12:57 Course - Re-evaluation Re-evalutation: 11/06/18 14:40 Vitals reviewed. Nursing notes reviewed. Patient is afebrile and nontoxic in appearance. He is breathing easily on room air. His lung sounds are diminished and he has a history of significant seasonal allergies, he was given albuterol for his cough and shortness of breath. EKG shows no ischemic changes. 11/06/18 15:28 After aerosol treatment patient denies any change in his respiratory symptoms. He had his oxygen dropped to 89% on room air while I was in the room with him. I placed him on 2 L nasal cannula which improved his oxygen saturation to 97%. Patient's chest x-ray shows pulmonary vascular congestion. He does have a history of heart failure and is on Lasix 80 mg twice daily. He will be given a dose of IV Lasix for diuresis in the emergency room. He does make urine. Patient will be admitted to the hospital for his oxygen requirement and fluid overload state. Plan for dialysis tomorrow. Case discussed with Dr. Johnson who accepted admission. Patient in agreement with plan of care. Laboratory 11/06/18 11/06/18 11/06/18 14:00 14:00 14:00 WBC 6.6 RBC 3.70 L Hgb 10.5 L Hct 31.7 L MCV 86 MCH 28.4 MCHC 33.1 RDW 16.6 H Plt Count 278 Seg Neutrophils % 75.5 Lymphocytes % 16.1 Monocytes % 6.3 Eosinophils % 1.7 Basophils % 0.4 Absolute Neutrophils 5.0 Absolute Lymphocytes 1.1 Absolute Monocytes 0.4 Absolute Eosinophils 0.1 Absolute Basophils 0.0 Sodium 141.7 Potassium 4.9 Chloride 100 Carbon Dioxide 28 Anion Gap 14 BUN 49 H Creatinine 12.35 H Est GFR ( Amer) 5 L Est GFR (Non-Af Amer) 4 L Glucose 82 Calcium 9.4 Total Bilirubin 0.7 Direct Bilirubin 0.5 H Neonat Total Bilirubin Not Reportable Neonat Direct Bilirubin Not Reportable Neonat Indirect Bili Not Reportable AST 23 ALT 15 L Alkaline Phosphatase 227 H CK-MB (CK-2) 0.30 Troponin I < 0.012 NT-Pro-B Natriuret Pep 7480 H Total Protein 8.1 Albumin 4.6 Chest X-Ray 11/06/18 13:17 IMPRESSION: Cardiomegaly with mild pulmonary vascular congestion. - Vital Signs Vital signs: Temp Pulse Resp BP Pulse Ox 99 F 90 18 178/93 H 96 11/06/18 12:57 11/06/18 12:57 11/06/18 12:57 11/06/18 12:57 11/06/18 12:57 - Laboratory Result Diagrams: 11/06/18 14:00 11/06/18 14:00 Laboratory results interpreted by me: 11/06/18 11/06/18 11/06/18 14:00 14:00 14:00 RBC 3.70 L Hgb 10.5 L Hct 31.7 L RDW 16.6 H BUN 49 H Creatinine 12.35 H Est GFR ( Amer) 5 L Est GFR (Non-Af Amer) 4 L Direct Bilirubin 0.5 H ALT 15 L Alkaline Phosphatase 227 H NT-Pro-B Natriuret Pep 7480 H - EKG Interpretation by Me Additional EKG results interpreted by me: 11/06/18 14:40 Interpreted by myself 1421: Normal sinus rhythm, rate 89, normal axis, lateral T wave flattening, no STEMI Discharge - Discharge Clinical Impression: Shortness of breath, Pulmonary vascular congestion, Hypoxia CHF exacerbation Qualifiers: Heart failure type: unspecified Qualified Code(s): I50.9 - Heart failure, unspecified Condition: Stable Disposition: ADMITTED INPATIENT Admitting Provider: [facility] Unit Admitted: [facility]
[2018-11-06 14:45] LABS: NT PRO BNP 7480 pg/mL (5-900)
[2018-11-06 14:46] LABS: TROPONIN I < 0.012 ng/mL
[2018-11-06] MEDS ORDERED: ACETAMINOPHEN 325 MG TABLET PO PRN (15:28)
[2018-11-06] MEDS ORDERED: FUROSEMIDE INJ/PF 40 MG/4 ML SDV IV ONE (15:28)
[2018-11-06] MEDS ORDERED: IPRATROPIUM/ALBUTEROL 0.5-2.5 MG/3 ML AMPUL NEB PRN (15:28)
--- NOTE | 2018-11-06 16:38 | EKG REPORT ---
SEVERITY:- BORDERLINE ECG - SINUS RHYTHM BORDERLINE T ABNORMALITIES, LATERAL LEADS ACCELERATED AV CONDUCTION : Confirmed by: Ramesh Frias MD 06-Nov-2018 16:37:50
--- NOTE | 2018-11-06 18:27 | PDOC H&P ---
History of Present Illness Admission Date/PCP: 11/06/18 15:36 DAWN JOHNSON MD Patient complains of: Shortness of the breath. Cough History of Present Illness: ALBERT SHAFFER JR is a 53 year old male This is a 53-year-old male with a history of end-stage renal disease on hemodialysis Wednesday and currently see her Dr. Christensen history of the hypertension's history of the type 2 diabetes but pretty much diet control recently had a viral symptoms with the conjunctivitis and a cough came to the emergency department with a complaining of a shortness of the breath and complaining cough but no fever no chills In the emergency department patient's chest x-ray shows the pulmonary vascular congestions and patients get 80 mg Lasix IV Patients feel better Patient still scheduled for dialysis tomorrow Patient still denied any chest pain Denied any other symptoms pt Is denied any heart problems Past Medical History Cardiac Medical History: Reports: Congestive Heart Failure, Hyperlipidema, Hypertension Denies: Coronary Artery Disease, Myocardial Infarction Pulmonary Medical History: Denies: Asthma, Bronchitis, Chronic Obstructive Pulmonary Disease (COPD), Pneumonia Neurological Medical History: Denies: Seizures Endocrine Medical History: Reports: Diabetes Mellitus Type 2 Renal/ Medical History: Reports: End Stage Renal Disease Musculoskeltal Medical History: Reports: Arthritis - LEFT HAND Hematology: Denies: Anemia Past Surgical History Past Surgical History: Reports: Vascular Surgery, Other - Left radiocephalic fistula insertion. Angioplasty in left radiocephalic Social History Smoking Status: Never Smoker Frequency of Alcohol Use: None Hx Recreational Drug Use: No Hx Prescription Drug Abuse: No Family History Family History: Reviewed & Not Pertinent, DM, Hyperlipidemia, Hypertension Parental Family History Reviewed: Yes Children Family History Reviewed: Yes Sibling(s) Family History Reviewed.: Yes Medication/Allergy Home Medications: Aspirin [Aspirin EC] 81 mg PO DAILY 08/06/15 Calcium Acetate 2 tab PO TID 08/06/15 Carvedilol [Coreg] 1 tab PO Q12 08/06/15 Cinacalcet HCl [Sensipar 90 mg Tablet] 1 tab PO DAILY 08/06/15 Furosemide 80 mg PO BID 08/06/15 Hydralazine HCl 50 mg PO Q8H 08/06/15 Lisinopril 20 mg PO DAILY 08/06/15 Nifedical Xl 90 mg PO QHS 08/06/15 Sevelamer Carbonate [Renvela] 800 mg PO TID 08/06/15 Calcitriol 1 tab PO DAILY 04/18/18 Allergies/Adverse Reactions: No Known Allergies Allergy (Verified 11/06/18 12:51) Review of Systems Constitutional: ABSENT: chills, fever(s), headache(s), weight gain, weight loss Eyes: ABSENT: visual disturbances Ears: ABSENT: hearing changes Cardiovascular: PRESENT: dyspnea on exertion. ABSENT: chest pain, edema, orthropnea, palpitations Respiratory: PRESENT: cough. ABSENT: hemoptysis Gastrointestinal: ABSENT: abdominal pain, constipation, diarrhea, hematemesis, hematochezia, nausea, vomiting Genitourinary: ABSENT: dysuria, hematuria Musculoskeletal: ABSENT: joint swelling Integumentary: ABSENT: rash, wounds Neurological: ABSENT: abnormal gait, abnormal speech, confusion, dizziness, focal weakness, syncope Psychiatric: ABSENT: anxiety, depression, homidical ideation, suicidal ideation Endocrine: ABSENT: cold intolerance, heat intolerance, menstrual abnormalities, polydipsia, polyuria Hematologic/Lymphatic: ABSENT: easy bleeding, easy bruising, lymphadenopathy Physical Exam Vital Signs: Temp Pulse Resp BP Pulse Ox 99 F 90 21 H 184/83 H 96 11/06/18 12:57 11/06/18 12:57 11/06/18 16:01 11/06/18 16:01 11/06/18 16:01 Intake & Output 11/05/18 11/06/18 11/07/18 06:59 06:59 06:59 Weight 124 kg General appearance: PRESENT: no acute distress, well-developed, well-nourished Head exam: PRESENT: atraumatic, normocephalic Eye exam: PRESENT: conjunctiva pink, EOMI, PERRLA. ABSENT: scleral icterus Ear exam: PRESENT: normal external ear exam Mouth exam: PRESENT: moist, tongue midline Neck exam: PRESENT: full ROM. ABSENT: carotid bruit, JVD, lymphadenopathy, thyromegaly Respiratory exam: PRESENT: decreased breath sounds Cardiovascular exam: PRESENT: RRR. ABSENT: diastolic murmur, rubs, systolic murmur Vascular exam: PRESENT: normal capillary refill GI/Abdominal exam: PRESENT: normal bowel sounds, soft. ABSENT: distended, guarding, mass, organolmegaly, rebound, tenderness Rectal exam: PRESENT: deferred Extremities exam: ABSENT: pedal edema Neurological exam: PRESENT: alert, awake, oriented to person, oriented to place, oriented to time, oriented to situation, CN II-XII grossly intact. ABSENT: motor sensory deficit Psychiatric exam: PRESENT: appropriate affect, normal mood. ABSENT: homicidal ideation, suicidal ideation Skin exam: PRESENT: dry, intact, warm. ABSENT: cyanosis, rash Results Laboratory Results: 11/06/18 14:00 11/06/18 14:00 11/06/18 11/06/18 14:00 14:00 WBC 6.6 RBC 3.70 L Hgb 10.5 L Hct 31.7 L MCV 86 MCH 28.4 MCHC 33.1 RDW 16.6 H Plt Count 278 Seg Neutrophils % 75.5 Lymphocytes % 16.1 Monocytes % 6.3 Eosinophils % 1.7 Basophils % 0.4 Absolute Neutrophils 5.0 Absolute Lymphocytes 1.1 Absolute Monocytes 0.4 Absolute Eosinophils 0.1 Absolute Basophils 0.0 Sodium 141.7 Potassium 4.9 Chloride 100 Carbon Dioxide 28 Anion Gap 14 BUN 49 H Creatinine 12.35 H Est GFR ( Amer) 5 L Est GFR (Non-Af Amer) 4 L Glucose 82 Calcium 9.4 Total Bilirubin 0.7 AST 23 ALT 15 L Alkaline Phosphatase 227 H Total Protein 8.1 Albumin 4.6 11/06/18 14:00 CK-MB (CK-2) 0.30 Troponin I < 0.012 NT-Pro-B Natriuret Pep 7480 H Impressions: Chest X-Ray 11/06/18 13:17 IMPRESSION: Cardiomegaly with mild pulmonary vascular congestion. Assessment & Plan - Diagnosis (1) CHF exacerbation Qualifiers: Heart failure type: diastolic Qualified Code(s): I50.33 - Acute on chronic diastolic (congestive) heart failure Is this a current diagnosis for this admission?: Yes Plan: Most likely due to the end-stage renal disease will get the 2D echocardiogram Patient is scheduled for dialysis in the morning We will give IV Lasix (2) Shortness of breath Is this a current diagnosis for this admission?: Yes Plan: Due to the above conditions (3) Diabetes mellitus type II, controlled Qualifiers: Diabetes mellitus technician terminal and repeater insulin use: without snf use Chronic kidney disease stage: on chronic dialysis Is this a current diagnosis for this admission?: Yes Plan: Continues a sliding scale (4) End stage renal disease Is this a current diagnosis for this admission?: Yes Plan: Patient still able to urinate will give IV Lasix until patient's get the dialysis in the morning patient does not need any urgent dialysis today We will consult the nephrology (5) Hypertension Qualifiers: Hypertension type: essential hypertension Qualified Code(s): I10 - Essential (primary) hypertension Is this a current diagnosis for this admission?: Yes Plan: Continues to current medications (6) Viral syndrome Is this a current diagnosis for this admission?: Yes Plan: cover with antibiotic with the recent viral symptoms may persist and on cough - Time Time Spent: 30 to 50 Minutes Medications reviewed and adjusted accordingly: Yes Anticipated discharge: Home Within: Other - Inpatient Certification Based on my medical assessment, after consideration of the patient's comorbidities, presenting symptoms, or acuity I expect that the services needed warrant INPATIENT care.: Yes I certify that my determination is in accordance with my understanding of Medicare's requirements for reasonable and necessary INPATIENT services [42 CFR 412.3e].: Yes Medical Necessity: Need Close Monitoring Due to Risk of Patient Decompensation Post Hospital Care: D/C Flame Degreaser Documentation - Plan Summary Plan Summary: Admit the patient in IMCU See other MD orders
[2018-11-06] MEDS: HYDRALAZINE HCL 50 MG TABLET PO SCH (19:34)
[2018-11-06 21:02] LABS: CREATINE KINASE MB 0.28 ng/mL (<4.55); TROPONIN I 0.016 ng/mL
[2018-11-06] MEDS: FUROSEMIDE INJ/PF 40 MG/4 ML SDV IV SCH (21:13)
[2018-11-06] MEDS: HEPARIN SOD (PORCINE) 5,000 UNIT/ML 1 ML SYRINGE SUBCUT SCH (21:13)
[2018-11-06] MEDS: NIFEDIPINE 30 MG TAB.ER.24 PO SCH (21:14)
[2018-11-06] MEDS: CARVEDILOL 12.5 MG TABLET PO SCH (21:14)
[2018-11-06] MEDS ORDERED: GUAIFENESIN SYRP 200 MG/10 ML UDC PO PRN (23:42)
[2018-11-07 03:07] LABS: HEMATOCRIT 32.1 % (37.9-51.0); HEMOGLOBIN 10.6 g/dL (13.5-17.0); MEAN CORPUSCULAR HEMOGLOBIN 28.1 pg (27.0-33.4); MEAN CORPUSCULAR HGB CONC 33.1 g/dL (32.0-36.0); MEAN CORPUSCULAR VOLUME 85 fl (80-97); PLATELET COUNT 246 10^3/uL (150-450); RED BLOOD COUNT 3.78 10^6/uL (4.35-5.55); RED CELL DISTRIBUTION WIDTH 16.8 % (11.5-14.0); WHITE BLOOD COUNT 7.6 10^3/uL (4.0-10.5)
[2018-11-07 03:46] LABS: ANION GAP 15 (5-19); BLOOD UREA NITROGEN 54 mg/dL (7-20); CALCIUM 9.3 mg/dL (8.4-10.2); CARBON DIOXIDE 24 mmol/L (22-30); CHLORIDE 104 mmol/L (98-107); GLUCOSE 90 mg/dL (75-110); POTASSIUM 4.6 mmol/L (3.6-5.0); SODIUM 142.5 mmol/L (137-145)
[2018-11-07 03:54] LABS: CREATINE KINASE MB 0.3 ng/mL (<4.55); TROPONIN I 0.018 ng/mL
[2018-11-07] MEDS ORDERED: EPOETIN ALFA INJ 20000 UNIT/1 ML VIAL (RENAL) IV PRN (05:00)
[2018-11-07] MEDS: FUROSEMIDE INJ/PF 40 MG/4 ML SDV IV SCH ×3 (05:39→21:45)
[2018-11-07] MEDS: HYDRALAZINE HCL 50 MG TABLET PO SCH ×3 (05:39→17:09)
[2018-11-07] MEDS: HEPARIN SOD (PORCINE) 5,000 UNIT/ML 1 ML SYRINGE SUBCUT SCH ×3 (05:40→21:47)
[2018-11-07] MEDS: CALCIUM ACETATE 667 MG CAPSULE PO SCH ×3 (07:56→16:56)
[2018-11-07] MEDS: SEVELAMER HCL 800 MG TABLET PO SCH ×3 (07:56→16:56)
[2018-11-07] MEDS ORDERED: HEPARIN SOD (PORCINE) 1,000 UNIT/ML 10 ML VIAL IV PRN (07:57)
--- NOTE | 2018-11-07 09:56 | PDOC PROGRESS REPORT ---
Subjective Progress Note for:: 11/07/18 Subjective:: Patient is feeling better Some mild cough Patient is currently on the dialysis machine Denied any chest pain Denied any other symptoms Reason For Visit: SHORTNESS OF BREATH, RENAL FAILURE, PULMONARY Physical Exam Vital Signs: Temp Pulse Resp BP Pulse Ox 98.6 F 95 18 165/87 H 93 11/07/18 02:37 11/07/18 07:00 11/07/18 02:37 11/07/18 02:37 11/07/18 02:37 Intake & Output 11/06/18 11/07/18 11/08/18 06:59 06:59 06:59 Output Total 1 Balance -1 Weight 124.1 kg General appearance: PRESENT: no acute distress, well-developed, well-nourished Head exam: PRESENT: atraumatic, normocephalic Eye exam: PRESENT: conjunctiva pink, EOMI, PERRLA. ABSENT: scleral icterus Ear exam: PRESENT: normal external ear exam Mouth exam: PRESENT: moist, tongue midline Neck exam: PRESENT: full ROM. ABSENT: carotid bruit, JVD, lymphadenopathy, thyromegaly Respiratory exam: PRESENT: decreased breath sounds Cardiovascular exam: PRESENT: RRR. ABSENT: diastolic murmur, rubs, systolic murmur Vascular exam: PRESENT: normal capillary refill GI/Abdominal exam: PRESENT: normal bowel sounds, soft. ABSENT: distended, guarding, mass, organolmegaly, rebound, tenderness Rectal exam: PRESENT: deferred Extremities exam: ABSENT: pedal edema Musculoskeletal exam: PRESENT: ambulatory Neurological exam: PRESENT: alert, awake, oriented to person, oriented to place, oriented to time, oriented to situation, CN II-XII grossly intact. ABSENT: motor sensory deficit Psychiatric exam: PRESENT: appropriate affect, normal mood. ABSENT: homicidal ideation, suicidal ideation Skin exam: PRESENT: dry, intact, warm. ABSENT: cyanosis, rash Results Laboratory Results: 11/07/18 03:01 11/07/18 03:01 11/06/18 11/06/18 11/07/18 14:00 14:00 03:01 WBC 6.6 7.6 RBC 3.70 L 3.78 L Hgb 10.5 L 10.6 L Hct 31.7 L 32.1 L MCV 86 85 MCH 28.4 28.1 MCHC 33.1 33.1 RDW 16.6 H 16.8 H Plt Count 278 246 Seg Neutrophils % 75.5 Lymphocytes % 16.1 Monocytes % 6.3 Eosinophils % 1.7 Basophils % 0.4 Absolute Neutrophils 5.0 Absolute Lymphocytes 1.1 Absolute Monocytes 0.4 Absolute Eosinophils 0.1 Absolute Basophils 0.0 Sodium 141.7 Potassium 4.9 Chloride 100 Carbon Dioxide 28 Anion Gap 14 BUN 49 H Creatinine 12.35 H Est GFR ( Amer) 5 L Est GFR (Non-Af Amer) 4 L Glucose 82 Calcium 9.4 Magnesium Total Bilirubin 0.7 AST 23 ALT 15 L Alkaline Phosphatase 227 H Total Protein 8.1 Albumin 4.6 11/07/18 03:01 WBC RBC Hgb Hct MCV MCH MCHC RDW Plt Count Seg Neutrophils % Lymphocytes % Monocytes % Eosinophils % Basophils % Absolute Neutrophils Absolute Lymphocytes Absolute Monocytes Absolute Eosinophils Absolute Basophils Sodium 142.5 Potassium 4.6 Chloride 104 Carbon Dioxide 24 Anion Gap 15 BUN 54 H Creatinine 13.42 H Est GFR ( Amer) 5 L Est GFR (Non-Af Amer) 4 L Glucose 90 Calcium 9.3 Magnesium 2.0 Total Bilirubin AST ALT Alkaline Phosphatase Total Protein Albumin 11/06/18 11/06/18 11/07/18 14:00 20:30 03:01 CK-MB (CK-2) 0.30 0.28 0.30 Troponin I < 0.012 0.016 0.018 NT-Pro-B Natriuret Pep 7480 H Impressions: Chest X-Ray 11/06/18 13:17 IMPRESSION: Cardiomegaly with mild pulmonary vascular congestion. Assessment & Plan - Diagnosis (1) CHF exacerbation Qualifiers: Heart failure type: diastolic Qualified Code(s): I50.33 - Acute on chronic diastolic (congestive) heart failure Is this a current diagnosis for this admission?: Yes Plan: Currently on hemodialysis today Will get the echocardiogram (2) Shortness of breath Is this a current diagnosis for this admission?: Yes Plan: Most likely up from the fluid issue (3) Diabetes mellitus type II, controlled Qualifiers: Diabetes mellitus film touch up inspector insulin use: without film touch up inspector use Chronic kidney disease stage: on chronic dialysis Is this a current diagnosis for this admission?: Yes Plan: Continues a sliding scale (4) End stage renal disease Is this a current diagnosis for this admission?: Yes Plan: Patient still able to urinate will give IV Lasix until patient's get the dialysis in the morning patient does not need any urgent dialysis today We will consult the nephrology (5) Hypertension Qualifiers: Hypertension type: essential hypertension Qualified Code(s): I10 - Es sential (primary) hypertension Is this a current diagnosis for this admission?: Yes Plan: Continues to current medications (6) Viral syndrome Is this a current diagnosis for this admission?: Yes Plan: Continues to antibiotics and cough medications - Time Time Spent with patient: 15-24 minutes Medications reviewed and adjusted accordingly: Yes Anticipated discharge: Home Within: within 24 hours - Plan Summary Plan Summary: Currently doing well
[2018-11-07] MEDS ORDERED: CALCIUM ACETATE 667 MG CAPSULE PO SCH (10:00)
--- NOTE | 2018-11-07 11:30 | PDOC CONSULTATION ---
Consultation Consult Date: 11/07/18 Consult reason:: Hemodialysis in the setting of congestive heart failure/ESRD. History of Present Illness Admission Date/PCP: 11/06/18 15:36 DAWN JOHNSON MD History of Present Illness: ALBERT SHAFFER JR is a 53 year old male with a history of chronic hypertension, ESRD on hemodialysis on Wednesday was admitted with history of progressive shortness of breath on Wednesday morning. He denies any history of chest pains or palpitations. He admits to being on high sodium diet and high fluid intake which has been unfortunately n issue with him for some time in spite of repeated advise against it. He found that he was short of breath before he was going to [facility] and decided to come to the hospital instead. He was found to be in early congestive heart failure. Unfortunately patient still makes decent good amounts of urine and was treated with IV Lasix and oxygen and stabilized. He is currently undergoing dialysis when he is being seen by me today. He feels better especially since a liter of fluid has been removed from him on dialysis. He denies any history of chest pain or shortness of breath currently unless he exerts when he gets some shortness of breath. He never had any chest pains. He states he has had cardiac stress test and echo last year when he was worked up for transplant at [facility]. Labs and medications were reviewed with him. Dialysis orders were reviewed with the treating dialysis nurse Susan. Past Medical History Cardiac Medical History: Reports: Hyperlipidemia, Hypertension-primary Denies: Coronary Artery Disease, Myocardial Infarction Pulmonary Medical History: Denies: Asthma, Bronchitis, Chronic Obstructive Pulmonary Disease (COPD), Pneumonia Neurological Medical History: Denies: Seizures Renal/ Medical History: Reports: End Stage Renal Disease, Secondary Hyperparathyroidism Musculoskeltal Medical History: Reports: Arthritis - LEFT HAND Hematology Medical History: Reports Anemia of Chronic Kidney Disease Past Surgical History Past Surgical History: Reports: Vascular Surgery, Other - Left radiocephalic fistula insertion. Angioplasty in left radiocephalic Social History Smoking Status: Never Smoker Frequency of Alcohol Use: None Hx Recreational Drug Use: No Drugs: None Hx Prescription Drug Abuse: No - Advance Directive Resuscitation Status: Full Code Family History Parental Family History Reviewed: Yes - Negative for ESRD Children Family History Reviewed: Yes - Negative for ESRD Sibling(s) Family History Reviewed.: No Medication/Allergy Home Medications: Aspirin [Aspirin EC] 81 mg PO DAILY 08/06/15 Calcium Acetate 2 tab PO TID 08/06/15 Carvedilol [Coreg] 1 tab PO Q12 08/06/15 Cinacalcet HCl [Sensipar 90 mg Tablet] 1 tab PO DAILY 08/06/15 Furosemide 80 mg PO BID 08/06/15 Hydralazine HCl 50 mg PO Q8H 08/06/15 Lisinopril 20 mg PO DAILY 08/06/15 Nifedical Xl 90 mg PO QHS 08/06/15 Sevelamer Carbonate [Renvela] 800 mg PO TID 08/06/15 Calcitriol 1 tab PO DAILY 04/18/18 Allergies/Adverse Reactions: No Known Allergies Allergy (Verified 11/06/18 12:51) Review of Systems Constitutional: ABSENT: fatigue, fever(s), headache(s), night sweats, weakness Nose, Mouth, and Throat: ABSENT: mouth pain, sore throat Cardiovascular: PRESENT: dyspnea on exertion. ABSENT: chest pain, edema, orthropnea, palpitations Respiratory: PRESENT: dyspnea. ABSENT: cough, hemoptysis Gastrointestinal: ABSENT: abdominal pain, coffee ground emesis, diarrhea, dysphagia, heartburn, hematemesis, hematochezia Genitourinary: ABSENT: difficulty urinating, dysuria, hematuria Musculoskeletal: ABSENT: deformity, joint swelling Integumentary: ABSENT: lesions, pruritus, rash Neurological: ABSENT: abnormal gait, abnormal speech, confusion, focal weakness, frequent falls, lack of coordination, syncope Endocrine: ABSENT: cold intolerance Hematologic/Lymphatic: ABSENT: easy bleeding, easy bruising, lymphadenopathy Physical Exam Vital Signs: Temp Pulse Resp BP Pulse Ox 98.6 F 95 18 165/87 H 93 11/07/18 02:37 11/07/18 07:00 11/07/18 02:37 11/07/18 02:37 11/07/18 02:37 Intake & Output 11/06/18 11/07/18 11/08/18 06:59 06:59 06:59 Output Total 1 Balance -1 Weight 124.1 kg General appearance: PRESENT: no acute distress Eye exam: PRESENT: conjunctiva pink, EOMI, PERRLA Ear exam: PRESENT: normal external ear exam Mouth exam: PRESENT: moist, neck supple Neck exam: ABSENT: lymphadenopathy, meningismus, tenderness, thyromegaly, tracheal deviation Respiratory exam: PRESENT: clear to auscultation bob, crackles. ABSENT: decreased breath sounds Cardiovascular exam: PRESENT: +S1, +S2 GI/Abdominal exam: PRESENT: normal bowel sounds, soft. ABSENT: organomegaly, tenderness Extremities exam: PRESENT: pedal edema Neurological exam: PRESENT: alert, awake, oriented to person, oriented to place, oriented to time Skin exam: PRESENT: normal color. ABSENT: cyanosis, erythema, rash Results Laboratory Results: 11/07/18 03:01 11/07/18 03:01 11/06/18 11/06/18 11/07/18 14:00 14:00 03:01 WBC 6.6 7.6 RBC 3.70 L 3.78 L Hgb 10.5 L 10.6 L Hct 31.7 L 32.1 L MCV 86 85 MCH 28.4 28.1 MCHC 33.1 33.1 RDW 16.6 H 16.8 H Plt Count 278 246 Seg Neutrophils % 75.5 Lymphocytes % 16.1 Monocytes % 6.3 Eosinophils % 1.7 Basophils % 0.4 Absolute Neutrophils 5.0 Absolute Lymphocytes 1.1 Absolute Monocytes 0.4 Absolute Eosinophils 0.1 Absolute Basophils 0.0 Sodium 141.7 Potassium 4.9 Chloride 100 Carbon Dioxide 28 Anion Gap 14 BUN 49 H Creatinine 12.35 H Est GFR ( Amer) 5 L Est GFR (Non-Af Amer) 4 L Glucose 82 Calcium 9.4 Magnesium Total Bilirubin 0.7 AST 23 ALT 15 L Alkaline Phosphatase 227 H Total Protein 8.1 Albumin 4.6 11/07/18 03:01 WBC RBC Hgb Hct MCV MCH MCHC RDW Plt Count Seg Neutrophils % Lymphocytes % Monocytes % Eosinophils % Basophils % Absolute Neutrophils Absolute Lymphocytes Absolute Monocytes Absolute Eosinophils Absolute Basophils Sodium 142.5 Potassium 4.6 Chloride 104 Carbon Dioxide 24 Anion Gap 15 BUN 54 H Creatinine 13.42 H Est GFR ( Amer) 5 L Est GFR (Non-Af Amer) 4 L Glucose 90 Calcium 9.3 Magnesium 2.0 Total Bilirubin AST ALT Alkaline Phosphatase Total Protein Albumin 11/06/18 11/06/18 11/07/18 14:00 20:30 03:01 CK-MB (CK-2) 0.30 0.28 0.30 Troponin I < 0.012 0.016 0.018 NT-Pro-B Natriuret Pep 7480 H Impressions: Chest X-Ray 11/06/18 13:17 IMPRESSION: Cardiomegaly with mild pulmonary vascular congestion. Assessment & Plan - Diagnosis (1) CHF exacerbation Qualifiers: Heart failure type: diastolic Qualified Code(s): I50.33 - Acute on chronic diastolic (congestive) heart failure Is this a current diagnosis for this admission?: Yes Plan: Patient is coming with overt congestive heart failure in the setting of ESRD. High intake of sodium and fluids has finally resulted in his presentation today. He knows the mistakes he has been making over the last many months in spite of appropriate advised on diet and fluid restrictions. Apparently he has been risk stratified from a cardiac point of view when while undergoing transplant workup and [facility]. Will order an echocardiogram. He should feel better once he has a proper dialysis and he is back to his dry weight. (2) End stage renal disease Is this a current diagnosis for this admission?: Yes Plan: Patient seen while undergoing dialysis currently. He is undergoing dialysis without any issues. Vital signs are stable. Dialysis is being supervised to ensure safe and smooth procedure. Plan to remove 4-5 L as tolerated. Dialysis orders were reviewed with the treating dialysis nurse. Hemoglobin stable. (3) Hypertension Qualifiers: Hypertension type: essential hypertension Qualified Code(s): I10 - Essential (primary) hypertension Is this a current diagnosis for this admission?: Yes Plan: Currently uncontrolled. See response to volume extraction. Advised compliance with his medications and diet.
[2018-11-07] MEDS: LISINOPRIL 10 MG TABLET PO SCH (11:43)
[2018-11-07] MEDS: CARVEDILOL 12.5 MG TABLET PO SCH ×2 (11:43→21:46)
[2018-11-07] MEDS: CINACALCET HCL 30 MG TABLET PO SCH (11:43)
[2018-11-07] MEDS: ASPIRIN 81 MG TABLET, ENT COATED PO SCH (11:43)
[2018-11-07] MEDS: CEFTRIAXONE 1 GM/D5W RTU 1 GM/50 ML RTUPB IV SCH (14:18)
[2018-11-07] MEDS: CALCITRIOL 0.25 MCG CAPSULE PO SCH (14:19)
[2018-11-07 14:36] LABS: CREATINE KINASE MB 0.26 ng/mL (<4.55); TROPONIN I 0.013 ng/mL
--- NOTE | 2018-11-07 21:39 | XCELERA REPORT ---
[address] [address] Transthoracic Echocardiogram Report Name: ALBERT SHAFFER JR, JR Age: 53 yrs Gender: Male : 1965 Patient Status: Inpatient Patient Location: [address] [place], [place] [address] Study Date: 11/07/2018 02:05 PM Height: 28.5 in Weight: 273 lb BSA: 1.2 m2 Procedure: A two-dimensional transthoracic echocardiogram with color flow Doppler was performed. The study was technically difficult with many images being suboptimal in quality. The study was technically limited with all images being suboptimal in quality. Images were not obtained from all of the standard acoustic windows due to the limited scope of the study. Reason For Study: chf History: CHF. Ordering Physician: Sophie NORIEGA Performed By: Floridalma Perera Interpretation Summary The left ventricle is borderline dilated. There is mild concentric left ventricular hypertrophy. No True apical 2 chamber views obtained.Hence cannot comment on the apical anterior , the basal anterior, the basal inferior and apical inferior navas.The mid anterior , the mid inferior and the rest of the LV navas contract normally. . LVEF is normal and is greater than 60% in the limited views. Doppler measurements suggest impaired left ventricular relaxation, which is associated with grade I/IV or mild diastolic dysfunction There is no thrombus. The right ventricle is not well visualized secondary to technical limitations Right atrium not well visualized secondary to technical limitations The left atrium is borderline dilated. There is no evidence of mitral valve prolapse. There is no vegetation seen on the mitral valve. There is no mitral valve stenosis. There is no mitral regurgitation noted. There is no aortic valvular vegetation. There is moderate aortic stenosis There is a peak gradient of 45 mm of Hg. There is no LVOT obstruction. There is a mild to moderate amount of aortic regurgitation There is no tricuspid stenosis. There is a trace amount of tricuspid regurgitation Right ventricular systolic pressure is normal. RVSP is 15 to 20 mm of Hg , with RA mean of 0 to 3. There is no pulmonic valvular stenosis. There is no pulmonic valvular regurgitation. The aortic root is normal size. The inferior vena cava appeared small and collapsed with respiration (RAP 0-5 mmHg) There is no pericardial effusion. MMode/2D Measurements & Calculations IVSd: 1.3 cm LVIDd: 5.8 cm FS: 36.9 % Ao root diam: 3.3 cm LVIDs: 3.7 cm EDV(Teich): 168.4 ml Ao root area: 8.4 cm2 LVPWd: 1.4 cm ESV(Teich): 57.3 ml EF(Teich): 66.0 % Doppler Measurements & Calculations MV E max bob: MV dec slope: Ao V2 max: AI max bob: 42.6 cm/sec 165.4 cm/sec2 334.6 cm/sec 353.0 cm/sec MV A max bob: MV dec time: Ao max PG: AI max P.3 mmHg 57.1 cm/sec 0.26 sec 44.8 mmHg AI dec slope: MV E/A: 0.75 Ao V2 mean: 254.5 cm/sec2 231.3 cm/sec AI P1/2t: 406.3 msec Ao mean P.5 mmHg Ao V2 VTI: 60.2 cm LV V1 max PG: PA V2 max: TR max bob: 6.8 mmHg 86.4 cm/sec 192.3 cm/sec LV V1 mean PG: PA max P.0 mmHg TR max P.2 mmHg 14.8 mmHg LV V1 max: 130.3 cm/sec LV V1 mean: 81.0 cm/sec LV V1 VTI: 24.1 cm Left Ventricle The left ventricle is borderline dilated. There is mild concentric left ventricular hypertrophy. No True apical 2 chamber views obtained.Hence cannot comment on the apical anterior , the basal anterior, the basal inferior and apical inferior navas.The mid anterior , the mid inferior and the rest of the LV navas contract normally. . LVEF is normal and is greater than 60% in the limited views. Doppler measurements suggest impaired left ventricular relaxation, which is associated with grade I/IV or mild diastolic dysfunction. There is no thrombus. Right Ventricle The right ventricle is not well visualized secondary to technical limitations. Atria Right atrium not well visualized secondary to technical limitations. The left atrium is borderline dilated. Mitral Valve There is no evidence of mitral valve prolapse. There is no vegetation seen on the mitral valve. There is no mitral valve stenosis. There is no mitral regurgitation noted. Aortic Valve There is no aortic valvular vegetation. There is moderate aortic stenosis. There is a peak gradient of 45 mm of Hg. There is no LVOT obstruction. There is a mild to moderate amount of aortic regurgitation. Tricuspid Valve There is no tricuspid stenosis. There is a trace amount of tricuspid regurgitation. Right ventricular systolic pressure is normal. RVSP is 15 to 20 mm of Hg , with RA mean of 0 to 3. Pulmonic Valve There is no pulmonic valvular stenosis. There is no pulmonic valvular regurgitation. Great Vessels The aortic root is normal size. The inferior vena cava appeared small and collapsed with respiration (RAP 0-5 mmHg). Effusions There is no pericardial effusion. : Sophie NORIEGA > Beth Little
[2018-11-07] MEDS: NIFEDIPINE 30 MG TAB.ER.24 PO SCH (21:46)
[2018-11-08] MEDS: HYDRALAZINE HCL 50 MG TABLET PO SCH ×3 (01:34→17:54)
[2018-11-08] MEDS: FUROSEMIDE INJ/PF 40 MG/4 ML SDV IV SCH ×2 (06:29→13:05)
[2018-11-08] MEDS: HEPARIN SOD (PORCINE) 5,000 UNIT/ML 1 ML SYRINGE SUBCUT SCH ×2 (06:29→13:02)
[2018-11-08 06:35] LABS: HEMATOCRIT 31.5 % (37.9-51.0); HEMOGLOBIN 10.4 g/dL (13.5-17.0); MEAN CORPUSCULAR HGB CONC 33.1 g/dL (32.0-36.0); MEAN CORPUSCULAR VOLUME 84 fl (80-97); PLATELET COUNT 265 10^3/uL (150-450); RED BLOOD COUNT 3.73 10^6/uL (4.35-5.55); RED CELL DISTRIBUTION WIDTH 16.9 % (11.5-14.0); WHITE BLOOD COUNT 5.7 10^3/uL (4.0-10.5)
[2018-11-08 06:59] LABS: ANION GAP 14 (5-19); BLOOD UREA NITROGEN 52 mg/dL (7-20); CALCIUM 9.3 mg/dL (8.4-10.2); CARBON DIOXIDE 26 mmol/L (22-30); CHLORIDE 100 mmol/L (98-107); GLUCOSE 90 mg/dL (75-110); POTASSIUM 4.4 mmol/L (3.6-5.0); SODIUM 139.8 mmol/L (137-145)
[2018-11-08] MEDS: CALCIUM ACETATE 667 MG CAPSULE PO SCH ×3 (08:07→17:54)
[2018-11-08] MEDS: SEVELAMER HCL 800 MG TABLET PO SCH ×3 (08:07→17:54)
[2018-11-08] MEDS: CEFTRIAXONE 1 GM/D5W RTU 1 GM/50 ML RTUPB IV SCH (09:36)
[2018-11-08] MEDS: ASPIRIN 81 MG TABLET, ENT COATED PO SCH (09:37)
[2018-11-08] MEDS: CINACALCET HCL 30 MG TABLET PO SCH (09:37)
[2018-11-08] MEDS: LISINOPRIL 10 MG TABLET PO SCH (09:37)
[2018-11-08] MEDS: CARVEDILOL 12.5 MG TABLET PO SCH (09:37)
[2018-11-08] MEDS: CALCITRIOL 0.25 MCG CAPSULE PO SCH (13:05)
--- NOTE | 2018-11-08 13:41 | PDOC PROGRESS REPORT ---
Subjective Progress Note for:: 11/08/18 Subjective:: And is feeling much better Patient is denied any chest pain to than any shortness of the breath Patient's dialyzed yesterday Patient's cough is also better Reason For Visit: SHORTNESS OF BREATH/RENAL FAILURE Physical Exam Vital Signs: Temp Pulse Resp BP Pulse Ox 98.3 F 88 18 143/69 H 99 11/08/18 07:43 11/08/18 09:12 11/08/18 07:43 11/08/18 07:43 11/08/18 09:12 Intake & Output 11/07/18 11/08/18 11/09/18 06:59 06:59 06:59 Intake Total 674 50 Output Total 1 4500 Balance -1 -9048 50 Weight 124.1 kg 119 kg General appearance: PRESENT: no acute distress, well-developed, well-nourished Head exam: PRESENT: atraumatic, normocephalic Eye exam: PRESENT: conjunctiva pink, EOMI, PERRLA. ABSENT: scleral icterus Ear exam: PRESENT: normal external ear exam Mouth exam: PRESENT: moist, tongue midline Neck exam: PRESENT: full ROM. ABSENT: carotid bruit, JVD, lymphadenopathy, thyromegaly Respiratory exam: PRESENT: clear to auscultation bob Cardiovascular exam: PRESENT: RRR. ABSENT: diastolic murmur, rubs, systolic murmur Pulses: PRESENT: normal dorsalis pedis pul, +2 pedal pulses bilateral Vascular exam: PRESENT: normal capillary refill GI/Abdominal exam: ABSENT: distended, guarding, mass, organolmegaly, rebound, tenderness Rectal exam: PRESENT: deferred Extremities exam: PRESENT: pedal edema Neurological exam: PRESENT: alert, awake, oriented to person, oriented to place, oriented to time, oriented to situation, CN II-XII grossly intact. ABSENT: motor sensory deficit Psychiatric exam: PRESENT: appropriate affect, normal mood. ABSENT: homicidal ideation, suicidal ideation Skin exam: PRESENT: dry, intact, warm. ABSENT: cyanosis, rash Results Laboratory Results: 11/08/18 05:38 11/08/18 05:38 11/08/18 11/08/18 05:38 05:38 WBC 5.7 RBC 3.73 L Hgb 10.4 L Hct 31.5 L MCV 84 MCH 28.0 MCHC 33.1 RDW 16.9 H Plt Count 265 Sodium 139.8 Potassium 4.4 Chloride 100 Carbon Dioxide 26 Anion Gap 14 BUN 52 H Creatinine 12.72 H Est GFR ( Amer) 5 L Est GFR (Non-Af Amer) 4 L Glucose 90 Calcium 9.3 Magnesium 2.0 11/06/18 11/06/18 11/07/18 14:00 20:30 03:01 CK-MB (CK-2) 0.30 0.28 0.30 Troponin I < 0.012 0.016 0.018 NT-Pro-B Natriuret Pep 7480 H 11/07/18 13:30 CK-MB (CK-2) 0.26 Troponin I 0.013 NT-Pro-B Natriuret Pep Impressions: Chest X-Ray 11/06/18 13:17 IMPRESSION: Cardiomegaly with mild pulmonary vascular congestion. Assessment & Plan - Diagnosis (1) CHF exacerbation Qualifiers: Heart failure type: diastolic Qualified Code(s): I50.33 - Acute on chronic diastolic (congestive) heart failure Is this a current diagnosis for this admission?: Yes Plan: Patient is currently doing better Patient echocardiogram is all stable Patient have a stress test done in a [facility] we will get the copy of the stress test (2) Shortness of breath Is this a current diagnosis for this admission?: Yes Plan: Most likely up from the fluid issue (3) Diabetes mellitus type II, controlled Qualifiers: Diabetes mellitus fpc insulin use: without fpc use Chronic kidney disease stage: on chronic dialysis Is this a current diagnosis for this admission?: Yes Plan: Continues a sliding scale (4) End stage renal disease Is this a current diagnosis for this admission?: Yes Plan: Patient still able to urinate will give IV Lasix until patient's get the di alysis in the morning patient does not need any urgent dialysis today We will consult the nephrology (5) Hypertension Qualifiers: Hypertension type: essential hypertension Qualified Code(s): I10 - Essential (primary) hypertension Is this a current diagnosis for this admission?: Yes Plan: Continues to current medications (6) Viral syndrome Is this a current diagnosis for this admission?: Yes - Time Time Spent with patient: 15-24 minutes Medications reviewed and adjusted accordingly: Yes Anticipated discharge: Home Within: Other - Plan Summary Plan Summary: We will repeat the chest x-ray Try to wean off from the oxygen Discussed with the nephrology
--- NOTE | 2018-11-08 14:49 | RADIOLOGY REPORT (SQ) ---
EXAM DESCRIPTION: CHEST 2 VIEWS COMPLETED DATE/TIME: 11/08/2018 2:37 pm REASON FOR STUDY: chf COMPARISON: 11/06/2018 EXAM PARAMETERS: NUMBER OF VIEWS: two views TECHNIQUE: Digital Frontal and Lateral radiographic views of the chest acquired. RADIATION DOSE: NA LIMITATIONS: none FINDINGS: LUNGS AND PLEURA: Minimal linear left basilar opacity, likely atelectasis. No focal conso lidation. Trace bilateral effusions. MEDIASTINUM AND HILAR STRUCTURES: No masses or contour abnormalities. HEART AND VASCULAR STRUCTURES: Mild central vascular congestion. Enlarged heart, stable. BONES: No acute findings. HARDWARE: None in the chest. OTHER: No other significant finding. IMPRESSION: Stable mildly enlarged cardiac silhouette with trace bilateral effusions. No overt pulm onary edema. TECHNICAL DOCUMENTATION: JOB ID: [id number] [employer]- All Rights Reserved Reading location - IP/workstation name: [email or web address]
--- NOTE | 2018-11-08 15:07 | PDOC PROGRESS REPORT ---
Subjective Progress Note for:: 11/08/18 Reason For Visit: Patient is a whole lot better this morning. He has been walking and ambulating without any shortness of breath. Denies any history of chest pains. Labs and medications reviewed Physical Exam Vital Signs: Temp Pulse Resp BP Pulse Ox 98.3 F 88 18 143/69 H 99 11/08/18 07:43 11/08/18 09:12 11/08/18 07:43 11/08/18 07:43 11/08/18 09:12 Intake & Output 11/07/18 11/08/18 11/09/18 06:59 06:59 06:59 Intake Total 674 50 Output Total 1 4500 Balance -1 -8283 50 Weight 124.1 kg 119 kg General appearance: PRESENT: no acute distress Respiratory exam: PRESENT: clear to auscultation bob. ABSENT: crackles Cardiovascular exam: PRESENT: +S1, +S2 GI/Abdominal exam: PRESENT: normal bowel sounds, soft. ABSENT: organomegaly, tenderness Extremities exam: ABSENT: pedal edema Neurological exam: PRESENT: alert, awake, oriented to person, oriented to place Results Laboratory Results: 11/08/18 05:38 11/08/18 05:38 11/08/18 11/08/18 05:38 05:38 WBC 5.7 RBC 3.73 L Hgb 10.4 L Hct 31.5 L MCV 84 MCH 28.0 MCHC 33.1 RDW 16.9 H Plt Count 265 Sodium 139.8 Potassium 4.4 Chloride 100 Carbon Dioxide 26 Anion Gap 14 BUN 52 H Creatinine 12.72 H Est GFR ( Amer) 5 L Est GFR (Non-Af Amer) 4 L Glucose 90 Calcium 9.3 Magnesium 2.0 11/06/18 11/06/18 11/07/18 14:00 20:30 03:01 CK-MB (CK-2) 0.30 0.28 0.30 Troponin I < 0.012 0.016 0.018 NT-Pro-B Natriuret Pep 7480 H 11/07/18 13:30 CK-MB (CK-2) 0.26 Troponin I 0.013 NT-Pro-B Natriuret Pep Impressions: Chest X-Ray 11/08/18 00:00 IMPRESSION: Stable mildly enlarged cardiac silhouette with trace bilateral effusions. No overt pulmonary edema. Assessment & Plan - Diagnosis (1) CHF exacerbation Qualifiers: Heart failure type: diastolic Qualified Code(s): I50.33 - Acute on chronic diastolic (congestive) heart failure Is this a current diagnosis for this admission?: Yes Plan: Currently resolved. Echocardiogram shows preserved LV function with diastolic dysfunction. He has had a stress test done last year with PCU as part of transplant workup. Discussed with Dr. Best to obtain that. (2) End stage renal disease Is this a current diagnosis for this admission?: Yes Plan: Patient was dialyzed very well yesterday and had good UF done. Advised proper dietary and fluid modifications. From a renal point of view he is ready to be discharged. (3) Hypertension Qualifiers: Hypertension type: essential hypertension Qualified Code(s): I10 - Essential (primary) hypertension Is this a current diagnosis for this admission?: Yes Plan: Currently well controlled. Advised dietary and medication compliance.
[2018-11-08 17:51] VITALS: BP 139/77
--- NOTE | 2018-11-10 16:25 | PDOC DISCHARGE SUMMARY ---
General - Admit/Disc Date/PCP Admission Date/Primary Care Provider: 11/06/18 15:36 DAWN JOHNSON MD Discharge Date: 11/08/18 - Discharge Diagnosis (1) CHF exacerbation Is this a current diagnosis for this admission?: Yes Summary: Most likely due to the end-stage renal disease with a diastolic dysfunctions currently resolved (2) Shortness of breath Is this a current diagnosis for this admission?: Yes Summary: Currently all resolved due to the above conditions (3) Diabetes mellitus type II, controlled Is this a current diagnosis for this admission?: Yes Summary: Currently all stable (4) End stage renal disease Is this a current diagnosis for this admission?: Yes Summary: Currently on hemodialysis (5) Hypertension Is this a current diagnosis for this admission?: Yes Summary: Currently all stable (6) Viral syndrome Is this a current diagnosis for this admission?: Yes Summary: Symptomatic treatments - Additional Information Resuscitation Status: Full Code Discharge Diet: Cardiac, Other (Comments) Discharge Activity: Activity As Tolerated, Balance Activity w/Rest, Weigh Daily Home Medications: Aspirin [Aspirin 81 mg Chewable Tablet] 81 mg PO DAILY 11/07/18 Calcitriol [Rocaltrol 0.5 mcg Capsule] 1 mcg PO DAILY 11/07/18 Calcium Acetate [Phoslo 667 mg Capsule] 667 mg PO TID 11/07/18 Carvedilol [Coreg 12.5 mg Tablet] 12.5 mg PO Q12 11/07/18 Cetirizine HCl [Zyrtec 10 mg Tablet] 10 mg PO DAILY 11/07/18 Cinacalcet HCl [Sensipar 90 mg Tablet] 90 mg PO DAILY 11/07/18 Ciprofloxacin HCl [Ciloxan 0.3% Oph Soln 2.5 ml] 2 drop OU BID 11/07/18 Cyanocobalamin/FA/Pyridoxine [F[place]bee Tablet] 1 tab PO DAILY 11/07/18 Fluticasone Propionate [Flonase Nasal [place] 50 Mcg/[place] 16 gm] 1 spray NASL DAILY 11/07/18 Furosemide [Lasix 80 mg Tablet] 80 mg PO BID 11/07/18 Hydralazine HCl [Apresoline 50 mg Tablet] 50 mg PO Q8 11/07/18 Lisinopril [Zestril] 20 mg PO DAILY 11/07/18 Nifedipine [Procardia Xl] 90 mg PO DAILY 11/07/18 Sevelamer Carbonate [Renvela] 1,600 mg PO MEALS 11/07/18 Sevelamer Carbonate [Renvela] 800 mg PO BID 11/07/18 History of Present Illness History of Present Illness: ALBERT SHAFFER JR is a 53 year old male This is a 53-year-old male with a history of end-stage renal disease on hemodialysis Wednesday and currently see her Dr. Christensen history of the hypertension's history of the type 2 diabetes but pretty much diet control recently had a viral symptoms with the conjunctivitis and a cough came to the emergency department with a complaining of a shortness of the breath and complaining cough but no fever no chills In the emergency department patient's chest x-ray shows the pulmonary vascular congestions and patients get 80 mg Lasix IV Patients feel better Patient still scheduled for dialysis tomorrow Patient still denied any chest pain Denied any other symptoms pt Is denied any heart problems Hospital Course Hospital Course: This is a 53-year-old male presenting the emergency department with a complaining of shortness of the breath and patient has vascular congestions most likely due to the end-stage renal disease and the diastolic dysfunctions Patient's underwent for the hemodialysis Patient's echocardiogram is all stable Patient had a stress test done at a [facility] transplant center was all stable within the last 6-month Patient still have some viral symptoms previous week currently all resolving Patient's denied any chest pain to than any shortness of the breath Patient is walking the hallway without any problems Patient's p.o. intake is good At this point discussed with the nephrology patient's wants to go home) which is stable and follow with the dialysis in the morning Physical Exam Vital Signs: Temp Pulse Resp BP Pulse Ox 97.9 F 78 18 139/77 H 96 11/08/18 18:38 11/08/18 18:38 11/08/18 18:38 11/08/18 18:38 11/08/18 18:38 Intake & Output 11/09/18 11/10/18 11/11/18 06:59 06:59 06:59 Intake Total 1200 Balance 1200 General appearance: PRESENT: no acute distress, well-developed, well-nourished Head exam: PRESENT: atraumatic, normocephalic Eye exam: PRESENT: conjunctiva pink, EOMI, PERRLA. ABSENT: scleral icterus Ear exam: PRESENT: normal external ear exam Mouth exam: PRESENT: moist, tongue midline Neck exam: PRESENT: full ROM. ABSENT: carotid bruit, JVD, lymphadenopathy, thyromegaly Respiratory exam: PRESENT: clear to auscultation bob Cardiovascular exam: PRESENT: RRR. ABSENT: diastolic murmur, rubs, systolic murmur Vascular exam: PRESENT: normal capillary refill GI/Abdominal exam: PRESENT: normal bowel sounds, soft. ABSENT: distended, guarding, mass, organolmegaly, rebound, tenderness Rectal exam: PRESENT: deferred Extremities exam: ABSENT: pedal edema Musculoskeletal exam: PRESENT: ambulatory Neurological exam: PRESENT: alert, awake, oriented to person, oriented to place, oriented to time, oriented to situation, CN II-XII grossly intact. ABSENT: motor sensory deficit Psychiatric exam: PRESENT: appropriate affect, normal mood. ABSENT: homicidal ideation, suicidal ideation Skin exam: PRESENT: dry, intact, warm. ABSENT: cyanosis, rash Results Laboratory Results: 11/08/18 05:38 11/08/18 05:38 11/06/18 11/06/18 11/07/18 14:00 20:30 03:01 CK-MB (CK-2) 0.30 0.28 0.30 Troponin I < 0.012 0.016 0.018 NT-Pro-B Natriuret Pep 7480 H 11/07/18 13:30 CK-MB (CK-2) 0.26 Troponin I 0.013 NT-Pro-B Natriuret Pep Impressions: Chest X-Ray 11/08/18 00:00 IMPRESSION: Stable mildly enlarged cardiac silhouette with trace bilateral effusions. No overt pulmonary edema. Qualifiers - * PATIENT BEING DISCHARGED WITH ANY OF THE FOLLOWING DIAGNOSIS: No VTE patient discharged on overlapping Therapy?: Yes Plan Time Spent: Greater than 30 Minutes - Follow in office 1 week Follow with the dialysis as scheduled
== END 2018-11-08 19:20 | disposition home or self-care (01) | DRG 291 ==
LOC: ER 12:48 → EH 15:36 → 3N 19:58
PROVIDERS: ADMIT Family Medicine; ATTEND Family Medicine
PROC: 5A1D70Z Performance of Urinary Filtration, Intermittent, Less than 6 Hours Per Day (ICD-10-PCS; principal; 2018-11-07)
PROC: 3E0F73Z Introduction of Anti-inflammatory into Respiratory Tract, Via Natural or Artificial Opening (ICD-10-PCS; 2018-11-07)
DX: I13.2 Hypertensive heart and chronic kidney disease with heart failure and with stage 5 chronic kidney disease, or end stage renal disease (principal); I50.33 Acute on chronic diastolic (congestive) heart failure; N18.6 End stage renal disease; E11.22 Type 2 diabetes mellitus with diabetic chronic kidney disease; E78.5 Hyperlipidemia, unspecified; B34.9 Viral infection, unspecified; Z79.899 Other long term (current) drug therapy; E21.3 Hyperparathyroidism, unspecified; Z99.2 Dependence on renal dialysis; Z79.82 Long term (current) use of aspirin; M13.842 Other specified arthritis, left hand; Z83.3 Family history of diabetes mellitus; Z83.438 Family history of other disorder of lipoprotein metabolism and other lipidemia
CPT/HCPCS: 36415; 71046; 80048; 80053; 82553; 83735; 83880; 84484; 85025; 85027; 93005; 93010; 93306; 94640; 99285; J0696; J1644; J1940; J3490; J7620

== ENCOUNTER 2019-03-09 14:19 | Emergency (ER) | payer MEDICARE, OTHER ==
--- NOTE | 2019-03-09 15:23 | ER Document Report ---
ED Medical Screen (RME) - General Chief Complaint: Leg Pain Stated Complaint: PAIN TO BACK OF RIGHT LEG Time Seen by Provider: 03/09/19 15:16 Primary Care Provider: DAWN JOHNSON MD [Primary Care Provider] - Follow up as needed TRAVEL OUTSIDE OF THE [place] IN LAST 30 DAYS: No - HPI Notes: 03/09/19 15:21 Patient is a 53-year-old male with a history of congestive heart failure, h ypertension, diabetes, end-stage renal disease on dialysis every Wednesday/Wednesday/Wednesday who presents from his family doctor's office for ultrasound to investigate for possible DVT to his right lower leg. Patient states that he has been having posterior thigh tenderness over the last couple days. Patient states that movements do make his pain worse. Patient states that when he lays on his right side he feels the pain is back and also aggravates the pain in his posterior thigh. He is not aware of any position that really improves his symptoms. He was on a 6-hour car ride last week and has been active, but does not recall any injury. No other history of DVT. Denies SHAHID, fever, neck pain, URI, CP, SOB, Abd pain, dysuria, numbness/tingling, loss of control of b/b, or rash. I have treated and performed a rapid initial assessment of this patient. A comprehensive ED assessment and evaluation of the patient, analysis of test results and completion of medical decision making process will be conducted by additional ED providers. PHYSICAL EXAMINATION: GENERAL: Well-appearing, well-nourished and in no acute distress. A&Ox4. Answers questions appropriately. LUNGS: Breath sounds clear to auscultation bilaterally and equal. No wheezes rales or rhonchi. HEART: Regular rate and rhythm without murmurs, rubs, gallops. Rt leg: + mild tenderness posterior right thigh. No calf tenderness or LE asymmetry. Extremities: No cyanosis, clubbing, or edema b/l. NEUROLOGICAL: Normal speech, normal gait. PSYCH: Normal mood, normal affect. - Related Data Allergies/Adverse Reactions: No Known Allergies Allergy (Verified 03/09/19 14:38) Past Medical History - Social History Frequency of alcohol use: None Drug Abuse: None - Past Medical History Cardiac Medical History: Reports: Hx Congestive Heart Failure, Hx Hypercholesterolemia, Hx Hypertension Denies: Hx Coronary Artery Disease, Hx Heart Attack Pulmonary Medical History: Denies: Hx Asthma, Hx Bronchitis, Hx COPD, Hx Pneumonia Neurological Medical History: Denies: Hx Cerebrovascular Accident, Hx Seizures Endocrine Medical History: Reports: Hx Diabetes Mellitus Type 1, Hx Diabetes Mellitus Type 2 Renal/ Medical History: Reports: Hx End Stage Renal Disease. Denies: Hx Peritoneal Dialysis Musculoskeltal Medical History: Reports Hx Arthritis - LEFT HAND Past Surgical History: Reports: Hx Vascular Surgery, Other - Left radiocephalic fistula insertion. Angioplasty in left radiocephalic - Immunizations Immunizations up to date: Yes Hx Diphtheria, Pertussis, Tetanus Vaccination: No - UNK History of Influenza Vaccine for 05/2017 - 10/2017 Season: Yes Physical Exam - Vital signs Vitals: Temp Pulse Resp BP Pulse Ox 98.5 F 92 18 129/78 H 94 03/09/19 14:53 03/09/19 14:53 03/09/19 14:53 03/09/19 14:53 03/09/19 14:53 Course - Vital Signs Vital signs: Temp Pulse Resp BP Pulse Ox 98.5 F 92 18 129/78 H 94 03/09/19 14:53 03/09/19 14:53 03/09/19 14:53 03/09/19 14:53 03/09/19 14:53 Doctor's Discharge - Discharge Referrals: DAWN JOHNSON MD [Primary Care Provider] - Follow up as needed
[2019-03-09] MEDS ORDERED: HYDROCODONE/ACETAMINOPHEN 5-325 MG TABLET PO ONE (18:45)
--- NOTE | 2019-03-09 18:48 | ER Document Report ---
HPI - HPI Patient complains to provider of: r leg pain Time Seen by Provider: 03/09/19 15:16 Onset: Other - 3 days Onset/Duration: Persistent Quality of pain: Achy, Sharp Pain Level: 3 Context: Patient presents complaining of posterior right leg pain from the hip down to the back of the knee. Patient denies any injury. Patient does have some lower back pain as well. Patient reports having a 6-hour car ride last week and was concerned about possible blood clot. Patient denies any chest pain or dyspnea. Patient denies any IV drug use chronic alcoholism or history of cancer. Associated Symptoms: denies: Chest pain, Nonproductive cough, Productive cough, Fever Exacerbated by: Movement Relieved by: Denies Similar symptoms previously: No Recently seen / treated by doctor: No - ROS ROS below otherwise negative: Yes Systems Reviewed and Negative: Yes All other systems reviewed and negative - CONSTITUTIONAL Constitutional: DENIES: Fever, Chills - NEURO Neurology: DENIES: Headache, Weakness - GASTROINTESTINAL Gastrointestinal: DENIES: Nausea - MUSCULOSKELETAL Musculoskeletal: REPORTS: Extremity pain, Back Pain - DERM Skin Color: Normal Skin Problems: None Past Medical History - General Information source: Patient - Social History Smoking Status: Never Smoker Frequency of alcohol use: None Drug Abuse: None Occupation: none Lives with: Family Family History: Reviewed & Not Pertinent, DM, Hyperlipidemia, Hypertension Patient has suicidal ideation: No Patient has homicidal ideation: No - Past Medical History Cardiac Medical History: Reports: Hx Congestive Heart Failure, Hx Hypercholesterolemia, Hx Hypertension Neurological Medical History: Denies: Hx Cerebrovascular Accident, Hx Seizures Endocrine Medical History: Reports: Hx Diabetes Mellitus Type 1, Hx Diabetes Mellitus Type 2 Renal/ Medical History: Reports: Hx End Stage Renal Disease. Denies: Hx Peritoneal Dialysis Musculoskeletal Medical History: Reports Hx Arthritis - LEFT HAND Past Surgical History: Reports: Hx Vascular Surgery, Other - Left radiocephalic fistula insertion. Angioplasty in left radiocephalic - Immunizations Immunizations up to date: Yes Hx Diphtheria, Pertussis, Tetanus Vaccination: No - UNK Vertical Provider Document - CONSTITUTIONAL Agree With Documented VS: Yes Exam Limitations: No Limitations General Appearance: WD/WN, No Apparent Distress Notes: PHYSICAL EXAMINATION: GENERAL: Well-appearing, well-nourished and in no acute distress. HEAD: Atraumatic, normocephalic. EYES: sclera clear, anicteric, conjunctiva are normal. ENT: nares patent, Moist mucous membranes. NECK: Normal range of motion, supple no lymphadenopathy LUNGS: respirations unlabored HEART: Regular rate and rhythm EXTREMITIES: Normal range of motion, no pitting or edema. No cyanosis. Gait normal, pt ambulates without difficulty BACK: Lower lumbar midline tenderness, right lumbar paraspinal tenderness, no deformities or step-offs. No CVA tenderness. NEUROLOGICAL: Cranial nerves grossly intact. Normal speech, normal gait. No saddle anesthesia. No foot drop PSYCH: Normal mood, normal affect. SKIN: Warm, Dry, normal turgor, no rashes or lesions noted. - INFECTION CONTROL TRAVEL OUTSIDE OF THE [place] IN LAST 30 DAYS: No Course - Re-evaluation Re-evalutation: 03/09/19 18:46 Patient's preliminary results from his venous duplex studies were negative for any DVT. The patient presents with low back pain without signs of spinal cord compression, cauda equina syndrome, infection, aneurysm, or other serious etiology. The patient is neurologically intact. Given the extremely risk of these diagnoses further testing and evaluation for these possibilities does not appear to be indicated at this time. Patient has been instructed to return if the symptoms worsen or change in any way. - Vital Signs Vital signs: Temp Pulse Resp BP Pulse Ox 98.5 F 92 18 129/78 H 94 03/09/19 14:53 03/09/19 14:53 03/09/19 14:53 03/09/19 14:53 03/09/19 14:53 Discharge - Discharge Clinical Impression: Sciatica Qualifiers: Laterality: right Qualified Code(s): M54.31 - Sciatica, right side Condition: Stable Disposition: HOME, SELF-CARE Instructions: Ice Packs ([facility]), Oral Narcotic Medication ([facility]), Sciatica ([facility]) Additional Instructions: Return immediately for any new or worsening symptoms Followup with your primary care provider, call tomorrow to make a followup appointment Prescriptions: Hydrocodone/Acetaminophen [Alpha 5-325 mg Tablet] 1 tab PO Q6 PRN #15 tablet PRN Reason: Referrals: DAWN JOHNSON MD [Primary Care Provider] - Follow up tomorrow
[2019-03-09 19:03] VITALS: BP 141/86
--- NOTE | 2019-03-10 08:51 | XCELERA REPORT ---
[address] [place] [facility] [address] Lower Extremity Venous Evaluation Procedure: Color flow and duplex imaging of the veins of the right lower extremity as well as the left Common Femoral vein. Right Sided Venous Evaluation Normal vessel filling wall to wall, compression and augmentation as well as Colour flow down to the infrageniculate veins. Left Sided Venous Evaluation The left common femoral vein is fully compressible. Spontaneous and phasic flow is present in the left common femoral vein. Interpretation Summary No duplex evidence of DVT or obstruction in the right lower extremity nor in the left Common Femoral vein. Name: ALBERT SHAFFER JR, JR Age: 53 yrs Gender: Male : 1965 Patient Status: Preadmit Patient Location: ER Study Date: 03/09/2019 04:03 PM Reason For Study: Rt posterior thigh pain Ordering Physician: WILFRID RODRIGUEZ Performed By: Barber Rodas : WILFRID RODRIGUEZ > Justin Garrett
== END 2019-03-09 19:03 | disposition home or self-care (01) ==
LOC: ER 14:19
DX: M54.31 Sciatica, right side (principal); M79.604 Pain in right leg; M25.551 Pain in right hip; M25.561 Pain in right knee; M54.5 Low back pain; I50.9 Heart failure, unspecified; I11.0 Hypertensive heart disease with heart failure; E11.9 Type 2 diabetes mellitus without complications
CPT/HCPCS: 99283; 93971 ×2; A9270

== ENCOUNTER 2020-09-03 14:13 | Emergency (ER) | payer MEDICARE, OTHER ==
--- NOTE | 2020-09-03 14:38 | ER Document Report ---
ED Medical Screen (RME) - General Chief Complaint: Shortness Of Breath Stated Complaint: COUGH,SHORT OF BREATH Time Seen by Provider: 09/03/20 14:28 Primary Care Provider: DAWN JOHNSON MD [Primary Care Provider] - Follow up as needed TRAVEL OUTSIDE OF THE [place] IN LAST 30 DAYS: No - HPI Notes: 09/03/20 14:35 55-year-old male with history of CHF who recently had a kidney transplant at [facility] in December 2019 presents to the emergency room today for evaluation of shortness of breath on exertion, fevers, cough, congestion, fatigue which started 4 days ago. Denies any history of positive Covid or flu test. Denies any chest pain. Patient reports he is also having left lower leg swelling. States symptoms are becoming progressively worse. Patient was just seen at [facility] this past . Decreased eating and drinking. I have greeted and performed a rapid initial assessment of this patient. A comprehensive ED assessment and evaluation of the patient, analysis of test results and completion of the medical decision making process will be conducted by additional ED providers. PHYSICAL EXAMINATION: GENERAL: Well-appearing, well-nourished and in no acute distress. CV: s1, s2 regular LUNGS: Diminished breath sounds bilaterally Musculoskeletal: Normal range of motion NEUROLOGICAL: Normal speech, normal gait. SKIN: Warm, Dry, normal turgor, no rashes or lesions noted. +1 pitting edema to left lower extremity The patient was evaluated during a global COVID-19 pandemic and that diagnosis was suspected/considered upon their initial presentation. Their evaluation, treatment and testing was consistent with current guidelines for patients who present with complaints or symptoms and may be related to COVID-19. - Related Data Allergies/Adverse Reactions: No Known Allergies Allergy (Verified 03/09/19 14:38) Past Medical History - Past Medical History Cardiac Medical History: Reports: Hx Congestive Heart Failure, Hx Hypercholesterolemia, Hx Hypertension Denies: Hx Coronary Artery Disease, Hx Heart Attack Pulmonary Medical History: Denies: Hx Asthma, Hx Bronchitis, Hx COPD, Hx Pneumonia Neurological Medical History: Denies: Hx Cerebrovascular Accident, Hx Seizures Endocrine Medical History: Reports: Hx Diabetes Mellitus Type 1, Hx Diabetes Mellitus Type 2 Renal/ Medical History: Reports: Hx End Stage Renal Disease. Denies: Hx Peritoneal Dialysis Musculoskeltal Medical History: Reports Hx Arthritis - LEFT HAND Past Surgical History: Reports: Hx Vascular Surgery, Other - Left radiocephalic fistula insertion. Angioplasty in left radiocephalic - Immunizations Immunizations up to date: Yes Hx Diphtheria, Pertussis, Tetanus Vaccination: No - UNK Physical Exam - Vital signs Vitals: Temp Pulse Resp BP Pulse Ox 98.8 F 98 18 181/82 H 96 09/03/20 14:19 09/03/20 14:19 09/03/20 14:19 09/03/20 14:19 09/03/20 14:19 Course - Vital Signs Vital signs: Temp Pulse Resp BP Pulse Ox 98.8 F 98 18 181/82 H 96 09/03/20 14:19 09/03/20 14:19 09/03/20 14:19 09/03/20 14:19 09/03/20 14:19 Doctor's Discharge - Discharge Referrals: DAWN JOHNSON MD [Primary Care Provider] - Follow up as needed
[2020-09-03 15:40] LABS: APPEARANCE,URINE SLIGHTLY-CLOUDY; BILIRUBIN,URINE NEGATIVE (NEGATIVE); COLOR,URINE YELLOW; GLUCOSE, URINE NEGATIVE (NEGATIVE); KETONES,URINE TRACE mg/dL (NEGATIVE); LEUKOCYTE ESTERASE,URINE TRACE (NEGATIVE); NITRITE,URINE NEGATIVE (NEGATIVE); PROTEIN,URINE 100 mg/dL (NEGATIVE); URINE SPECIFIC GRAVITY 1.019; UROBILINOGEN,URINE NEGATIVE mg/dL (<2.0)
[2020-09-03 15:52] LABS: HEMATOCRIT 37.5 % (37.9-51.0); HEMOGLOBIN 12.8 g/dL (13.5-17.0); MEAN CORPUSCULAR HGB CONC 34.1 g/dL (32.0-36.0); MEAN CORPUSCULAR VOLUME 88 fl (80-97); PLATELET COUNT 138 10^3/uL (150-450); RED BLOOD COUNT 4.26 10^6/uL (4.35-5.55); RED CELL DISTRIBUTION WIDTH 17.5 % (11.5-14.0); WHITE BLOOD COUNT 5.2 10^3/uL (4.0-10.5)
[2020-09-03 16:09] LABS: ALBUMIN 3.5 g/dL (3.5-5.0); ALKALINE PHOSPHATASE 96 U/L (38-126); ANION GAP 11 (5-19); ASPARTATE AMINO TRANSFERASE 42 U/L (17-59); BILIRUBIN,DIRECT 0.2 mg/dL (0.0-0.4); BILIRUBIN,TOTAL 0.4 mg/dL (0.2-1.3); BLOOD UREA NITROGEN 28 mg/dL (7-20); CALCIUM 9.2 mg/dL (8.4-10.2); CARBON DIOXIDE 18 mmol/L (22-30); CHLORIDE 108 mmol/L (98-107); GLUCOSE 177 mg/dL (75-110); POTASSIUM 4.2 mmol/L (3.6-5.0); TOTAL PROTEIN 6.7 g/dL (6.3-8.2)
[2020-09-03 16:18] LABS: ABSOLUTE LYMPHOCYTES# (MANUAL) 0.8 10^3/uL (0.5-4.7); ABSOLUTE MONOCYTES # (MANUAL) 0.3 10^3/uL (0.1-1.4); BAND NEUTROPHILS % (MANUAL) 1 % (3-5); BASOPHILS % (MANUAL) 0 % (0-2); EOSINOPHILS % (MANUAL) 0 % (0-6); LYMPHOCYTES % (MANUAL) 16 % (13-45); MONOCYTES % (MANUAL) 6 % (3-13); SEGMENTED NEUTROPHILS % (MAN) 77 % (42-78); TOTAL CELLS COUNTED 100
[2020-09-03 16:20] LABS: ANISOCYTOSIS 1+; NT PRO BNP 1160 pg/mL (<125)
[2020-09-03 16:21] LABS: PLATELET COMMENT ADEQUATE; TEAR DROP CELLS 1+
[2020-09-03 16:22] LABS: TROPONIN I < 0.012 ng/mL
--- NOTE | 2020-09-03 16:34 | RADIOLOGY REPORT (SQ) ---
EXAM DESCRIPTION: VENOUS UNILATERAL LOWER IMAGES COMPLETED DATE/TIME: 09/03/2020 4:21 pm REASON FOR STUDY: pain left leg COMPARISON: 03/09/2019 TECHNIQUE: Dynamic and static byrd scale and color images acquired of the left leg venous system. Se lected spectral images acquired with additional compression and augmentation maneuvers. The contralat eral common femoral vein and saphenofemoral junction were also imaged. Images stored on PACS. LIMITATIONS: None. FINDINGS: COMMON FEMORAL: Normal phasicity, compression and augmentation. No visualized echogenic ma terial on byrd scale. No defects on color images. FEMORAL: Normal compression and augmentation. No visualized echogenic material on byrd scale. No defe cts on color images. POPLITEAL: Normal compression, augmentation. No visualized echogenic material on byrd scale. No defec ts on color images. CALF VESSELS: Normal compression, augmentation. No visualized echogenic material on byrd scale. No de fects on color images. GSV and SSV: Normal compression, augmentation. No visualized echogenic material on byrd scale. No def ects on color images. ANY DEEP VENOUS INSUFFICIENCY: Not evaluated. ANY EVIDENCE OF POPLITEAL CYST: No. OTHER: No other significant finding. CONTRALATERAL COMMON FEMORAL VEIN: Normal phasicity, compression and augmentation. No visualized echogenic material on byrd scale. No de fects on color images. IMPRESSION: 1. NO EVIDENCE OF DVT OR SVT IN THE LEFT LEG. COMMENT: 1. The results of this examination were discussed with emergency department provider on 07/2021 at 16:26 hours. TECHNICAL DOCUMENTATION: JOB ID: [id number] 2010 [employer]- All Rights Reserved Reading location - IP/workstation name: [email or web address]
--- NOTE | 2020-09-03 17:28 | RADIOLOGY REPORT (SQ) ---
EXAM DESCRIPTION: CHEST SINGLE VIEW IMAGES COMPLETED DATE/TIME: 09/03/2020 2:07 pm REASON FOR STUDY: sob COMPARISON: 11/08/2018 EXAM PARAMETERS: NUMBER OF VIEWS: One view. TECHNIQUE: Single frontal radiographic view of the chest acquired. RADIATION DOSE: NA LIMITATIONS: External leads partially obscure underlying structures. FINDINGS: LUNGS AND PLEURA: Increase in patchy bilateral opacities, greater on the left. No pleural effusion or visualized pneumothorax. MEDIASTINUM AND HILAR STRUCTURES: No masses. Contour normal. HEART AND VASCULAR STRUCTURES: Enlarged cardiac silhouette. BONES: No acute findings. HARDWARE: Right MediPort catheter with the tip projecting over the SVC. OTHER: No other significant finding. IMPRESSION: New bilateral patchy airspace opacities left greater than right, nonspecific but could b e infectious in etiology. TECHNICAL DOCUMENTATION: JOB ID: [id number] 2010 [employer]- All Rights Reserved Reading location - IP/workstation name: [email or web address]
--- NOTE | 2020-09-03 18:02 | ER Document Report ---
ED General - General Chief Complaint: Shortness Of Breath Stated Complaint: COUGH,SHORT OF BREATH Time Seen by Provider: 09/03/20 14:28 Primary Care Provider: DAWN JOHNSON MD [Primary Care Provider] - Follow up as needed Information source: Patient TRAVEL OUTSIDE OF THE [place] IN LAST 30 DAYS: No - HPI Notes: Renal transplant patient who arrives complaining of shortness of breath. He states he was recently diagnosed with cytomegalovirus infection and was on antivirals. He states that he was having a reaction to the antivirals so on of last week he was given a different shot and discontinued from his antivirals. He states approximately 2 days later on Wednesday he began to develop fevers (subjective) and body aches with a dry cough. He states he does not know of any known Covid exposures. He states his transplantation happened at [facility] and that he was at [facility] on for the above shot. No vomiting no diarrhea. - Related Data Allergies/Adverse Reactions: No Known Allergies Allergy (Verified 09/03/20 15:38) Past Medical History - General Information source: Patient - Social History Smoking Status: Former Smoker Frequency of alcohol use: None Drug Abuse: None Family History: Reviewed & Not Pertinent, DM, Hyperlipidemia, Hypertension Patient has homicidal ideation: No - Past Medical History Cardiac Medical History: Reports: Hx Congestive Heart Failure, Hx Hypercholesterolemia, Hx Hypertension Denies: Hx Coronary Artery Disease, Hx Heart Attack Pulmonary Medical History: Denies: Hx Asthma, Hx Bronchitis, Hx COPD, Hx Pneumonia Neurological Medical History: Denies: Hx Cerebrovascular Accident, Hx Seizures Endocrine Medical History: Reports: Hx Diabetes Mellitus Type 1, Hx Diabetes Mellitus Type 2 Renal/ Medical History: Reports: Hx End Stage Renal Disease. Denies: Hx Peritoneal Dialysis Musculoskeletal Medical History: Reports Hx Arthritis - LEFT HAND Past Surgical History: Reports: Hx Vascular Surgery, Other - Left radiocephalic fistula insertion. Angioplasty in left radiocephalic - Immunizations Immunizations up to date: Yes Hx Diphtheria, Pertussis, Tetanus Vaccination: No - UNK Review of Systems - Review of Systems Constitutional: Chills, Fever, Recent illness Cardiovascular: denies: Chest pain, Palpitations Respiratory: Cough, Short of breath -: Yes All other systems reviewed and negative Physical Exam - Vital signs Vitals: Temp Pulse Resp BP Pulse Ox 98.8 F 98 18 181/82 H 96 09/03/20 14:19 09/03/20 14:19 09/03/20 14:19 09/03/20 14:19 09/03/20 14:19 Interpretation: Hypertensive - General General appearance: Appears well, Alert In distress: None - HEENT Head: Normocephalic, Atraumatic Eyes: Normal Pupils: PERRL - Respiratory Respiratory status: No respiratory distress Chest status: Nontender Breath sounds: Normal Chest palpation: Normal - Cardiovascular Rhythm: Regular Heart sounds: Normal auscultation Murmur: No - Abdominal Inspection: Normal Distension: No distension Bowel sounds: Normal Tenderness: Nontender Organomegaly: No organomegaly - Back Back: Normal, Nontender - Extremities General upper extremity: Normal inspection, Nontender, Normal color, Normal ROM, Normal temperature General lower extremity: Normal inspection, Nontender, Normal color, Normal ROM, Normal temperature, Normal weight bearing. No: Richelle's sign - Neurological Neuro grossly intact: Yes Cognition: Normal Orientation: AAOx4 Formoso Coma Scale Eye Opening: Spontaneous Carmelina Coma Scale Verbal: Oriented Formoso Coma Scale Motor: Obeys Commands Formoso Coma Scale Total: 15 Speech: Normal Motor strength normal: LUE, RUE, LLE, RLE Sensory: Normal - Psychological Associated symptoms: Normal affect, Normal mood - Skin Skin Temperature: Warm Skin Moisture: Dry Skin Color: Normal Course - Re-evaluation Re-evalutation: 09/03/20 18:02 this is a known kidney transplant patient received his transplant at [facility]. He states that he received some type of shot last week at [facility] and proximally 2 days later he began to develop symptoms of a viral illness. The symptoms consist of body aches fevers chills dry cough and some shortness of breath. He does not know of any known Covid exposures. His x-ray seems to be consistent with Covid. At this time a Covid test is pending. I have discussed the case with the transplant physician at [facility] who recommends admission. Covid test is positive. At this time the patient will require admission and he will either be admitted to [facility] facility or to this facility. I have turned the care of the patient over to Dr. Warner at 8 PM who will follow up on the [facility] consultation and determine final disposition. 09/03/20 20:08 - Vital Signs Vital signs: Temp Pulse Resp BP Pulse Ox 98.2 F 78 18 131/76 H 97 09/03/20 19:45 09/03/20 19:45 09/03/20 19:45 09/03/20 19:45 09/03/20 19:45 - Laboratory Results Result Diagrams: 09/03/20 15:32 09/03/20 15:32 Laboratory Results Interpreted: 09/03/20 09/03/20 09/03/20 15:26 15:32 15:32 RBC 4.26 L Hgb 12.8 L Hct 37.5 L RDW 17.5 H Plt Count 138 L Band Neutrophils % 1 L Sodium 136.8 L Chloride 108 H Carbon Dioxide 18 L BUN 28 H Creatinine 2.90 H Est GFR ( Amer) 27 L Est GFR (MDRD) Non-Af 23 L Glucose 177 H NT-Pro-B Natriuret Pep Urine Protein 100 H Urine Ketones TRACE H Urine Blood SMALL H Ur Leukocyte Esterase TRACE H 09/03/20 15:32 RBC Hgb Hct RDW Plt Count Band Neutrophils % Sodium Chloride Carbon Dioxide BUN Creatinine Est GFR ( Amer) Est GFR (MDRD) Non-Af Glucose NT-Pro-B Natriuret Pep 1160 H Urine Protein Urine Ketones Urine Blood Ur Leukocyte Esterase Critical Laboratory Results Reviewed: Yes Attending or Supervising Physician who Reviewed Labs: RUBA HUTTON - Radiology Results Critical Radiology Results Reviewed: Yes Attending or Supervising Physician who Reviewed Radiology: RUBA HUTTON - EKG Interpretation by Hi EKG shows normal: Sinus rhythm Rate: Normal - 99 Rhythm: NSR Osborne/QRS: No: Right axis deviation, Left axis deviation Discharge - Discharge Clinical Impression: Pneumonia due to COVID-19 virus, Renal transplant recipient Condition: Serious Disposition: [facility] Referrals: DAWN JOHNSON MD [Primary Care Provider] - Follow up as needed
--- NOTE | 2020-09-03 19:16 | EKG REPORT ---
SEVERITY:- BORDERLINE ECG - SINUS RHYTHM BORDERLINE T ABNORMALITIES, LATERAL LEADS : Confirmed by: Beth Little MD 03-Sep-2020 19:16:14
[2020-09-03 20:49] VITALS: BP 139/84
--- NOTE | 2020-09-03 21:19 | ER Document Report ---
Doctor's Note Notes: 09/03/20 21:18 Patient turned over to me pending acceptance by [facility]. I had approximately 8 PM I called [facility] to transfer center who said that the supercharger repair supervisor had accepted patient but since they were at capacity needed to wait for the medical esthetician to approve the transfer above capacity. Awaiting return call from [facility]. Will continue to monitor in ED pending transfer. 09/03/20 23:46 Patient picked up by ALS crew, went to see patient when crew had arrived and patient was stable on room air satting normally without any acute respiratory distress and remains appropriate for transfer at that time. Patient complains of pain all over his body and feeling cold, patient does take Titus for chronic pain but the symptoms are likely secondary to fever so I prescribed patient his Titus and an additional 650 mg of acetaminophen. Patient has otherwise remained stable at time of transport. Patient accepted by Dr. Valery Smith.
[2020-09-03] MEDS ORDERED: HYDROCODONE/ACETAMINOPHEN 5-325 MG TABLET PO ONE (23:01)
[2020-09-03] MEDS ORDERED: HYDRALAZINE HCL INJ/PF 20 MG/1 ML SDV IV ONE (23:01)
[2020-09-03] MEDS ORDERED: ACETAMINOPHEN 325 MG TABLET PO ONE (23:04)
[2020-09-03] MEDS ORDERED: HYDRALAZINE HCL 25 MG TABLET ONE (23:05)
== END 2020-09-03 23:42 | disposition short-term general hospital (02) ==
LOC: ER 14:13
DX: U07.1 COVID-19 (principal); J12.82 Pneumonia due to coronavirus disease 2019; Z94.0 Kidney transplant status; I10 Essential (primary) hypertension; E11.9 Type 2 diabetes mellitus without complications; Z87.891 Personal history of nicotine dependence
CPT/HCPCS: 93005; 99285; 96374; 36415; 85025; 0241U ×4; 80053; 81001; 84484; 83880; 93971; 71045; 93010; A9270 ×2; J0360; C9803